=== PATIENT | male | born 1945 | race Caucasian/White ===

== ENCOUNTER 2019-08-11 10:31 | Inpatient (IN) ==
--- NOTE | 2019-08-07 12:26 | Anesthesiology Consultation ---
Date of Service August 07, 2019 Assessment & Plan (1) Encounter for pre-operative examination: Patient seen in [facility] 04/2019, case postponed due to COVID19. Patient's pre-op labs showed elevated INR at 1.4 (patient not on any medications that may cause this), and note was sent to PCP for clearance. Clearance note comments on abnormality, labs were re-ordered. Updated labs were never received by us, but patient was cleared by PCP, so labs were presumed to be OK. Spoke to patient's PCP office to clarify if any labs done recently. They stated labs were repeated in April, and gave verbal confirmation that INR was 1.3 on repeat. Patient will have labs repeated prior to surgery. Case discussed with Dr. Soria. If updated labs show persistent, mild elevation in INR, OK from anesthesia standpoint, but surgeon will need to be made aware, and may preclude patient from having regional nerve block. COVID Status: As of 08/02 nurse assessment, patient denies travel to endemic area, known exposure/sick contacts, symptoms, or testing for coronavirus. Chart Review Chart Review: Acceptable Risk for Surgery (pending updated labs) and Patient NOT seen in Pre Admission Testing History Surgery Operation Date: 08/11/19 12:30 Proposed Procedures p Right Reverse Total Shoulder Arthroplasty - Kelechi Wallis, DO Height/Weight Height: 5 ft 11 in Weight: 153.314 kg Allergies Allergy/AdvReac Type Severity Reaction Status Date / Time No Known Allergies Allergy Verified 08/03/19 11:30 Medications Home Medications Medication Instructions Recorded Confirmed Last Taken allopurinol 100 mg PO QAM 04/18/19 08/03/19 Unknown lisinopril-hydrochlorothiazide 1 tab PO QAM 04/18/19 08/03/19 Unknown tamsulosin 0.4 mg PO HS 04/18/19 08/03/19 Unknown Past Medical History Medical History Enlarged prostate History of gout History of kidney stones Hypertension Morbid obesity Past Family History Family History Other No family history of adverse response to anesthesia Past Surgical History Surgical History History of appendectomy History of cystoscopy History of plastic surgery Severe laceration to lower lip from power saw History of surgery on extremity L LEG/ ROYCE PLACED Social History Smoking Status: Former smoker tobacco type: cigarettes Do You Dip or Chew Tobacco: No Smoking End Date: 1991 Hx Alcohol Use: No Hx Substance Use: No substance use type: does not use
--- NOTE | 2019-08-10 07:55 | History & Physical Report ---
Date of Service August 10, 2019 Assessment & Plan (1) Osteoarthritis of right shoulder: We will proceed with a right reverse shoulder arthroplasty. Postoperatively he will be placed in a sling and kept overnight in the hospital for postoperative medical management. He plans to go to outpatient physical therapy and lock even upon discharge. Robbie is a high risk for shoulder replacement surgery. He has a major comorbidity of morbid obesity with a BMI of 47. Present on Admission?: Yes History of Present Illness Chief Complaint: Primary osteoarthritis of the right shoulder Primary Care Provider: Magen Hellerlinda Avalos is a pleasant 74-year-old male who is been dealing with chronic increasing right shoulder pain. X-rays and clinical examination have been diagnostic for advanced osteoarthritis of the right shoulder. After failing years of conservative treatment, he has elected to proceed with a right reverse total shoulder arthroplasty. Allergies Allergy/AdvReac Type Severity Reaction Status Date / Time No Known Allergies Allergy Verified 08/03/19 11:30 Home Medications Home Medications Medication Instructions Recorded Confirmed Type allopurinol 100 mg PO QAM 04/18/19 08/03/19 History lisinopril-hydrochlorothiazide 1 tab PO QAM 04/18/19 08/03/19 History tamsulosin 0.4 mg PO HS 04/18/19 08/03/19 History Past Med/Surg History Medical History Enlarged prostate History of gout History of kidney stones Hypertension Morbid obesity Surgical History History of appendectomy History of cystoscopy History of plastic surgery Severe laceration to lower lip from power saw History of surgery on extremity L LEG/ ROYCE PLACED Family History Other No family history of adverse response to anesthesia Social History Preferred Language: Armenian Communication Ability: Effective Major Assembler Required: No Beliefs That Will Affect Care: None Current Living Situation: Spouse Feels Safe at Home: Yes Smoking Status: Former smoker Tobacco Type: cigarettes ; Second Hand Exposure: No ; Hx Alcohol Use: No Hx Substance Use: No Review of Systems Review of Systems: All systems reviewed & are unremarkable except as noted in HPI & below Physical Exam Constitutional: WD/WN, vitals as above Eyes: PERRL, conjunctivae normal, anicteric sclerae ENMT: external ear and nose normal, oropharynx normal Neck: trachea midline, no thyromegaly Respiratory: normal respiratory effort Cardiovascular: RRR, no murmur, no edema Gastrointestinal (Abdomen): normal bowel sounds, soft, nontender, no hepatosplenomegaly Musculoskeletal: Physical examination of the right shoulder reveals decreased range of motion and crepitis throughout. There is good strength with full can testing and external rotation. There is tenderness palpation along the anterior glenohumeral joint line. The right upper extremity is neurovascularly intact. Psychiatric: A+Ox3, euthymic affect Results & Data Results & Data ([facility]) Diagnostic Findings Radiographs of the right shoulder show osteoarthritis of the glenohumeral joint. There is joint space narrowing, osteophyte formation, and [id number] articulation. PG Care Time/CCT Total # of Minutes Spent Total Time Spent with Patient: Total time spent is greater than 50% in coordination of care (as documented) at patient's floor/unit and/or counseling patient: Coding Level of Care Code 06236 Initial Inpt Care Lvl 3 Diagnoses Osteoarthritis of right shoulder M19.011
[~2019-08-11 10:31] MED LIST: ACETAMINOPHEN 500 MG TAB PO SCH; BUPIVACAINE 0.5 % 5 MG/1 ML PF 10ML VIAL ONE; CEFAZOLIN 3000MG 72.5 ML IV SCH; FAMOTIDINE 20 MG TAB PO SCH; GABAPENTIN 300 MG CAP PO SCH; LR 15ML/HR IV SCH; LR 60ML/HR IV SCH; ROPIVACAINE 0.5% HCL/PF 150 MG, BUPIVACAINE 0.5% MPF 30 ML, EPINEPHrine 30MG/30ML (OR U... INSTIL SCH; TRANEXAMIC ACID 1,000 MG **IV Intra-op IV SCH; TRANEXAMIC ACID 1,000 MG **IV Pre-op IV SCH; dexAMETHasone 4 MG TAB PO SCH
[2019-08-11] MEDS ORDERED: GLYCOPYRROLATE 0.2 MG/ML VIAL ONE (12:49)
[2019-08-11] MEDS ORDERED: PROPOFOL IV EMULSION 10 MG/ML 20 ML VIAL IV ONE (12:49)
[2019-08-11] MEDS ORDERED: MIDAZOLAM HCL 1 MG/ML 2ML VIAL ONE (12:49)
[2019-08-11] MEDS ORDERED: LIDOCAINE HCL 2% 2 ML VIAL/AMP(20MG/ML) INFIL ONE (12:49)
[2019-08-11] MEDS ORDERED: ROCURONIUM BROMIDE 10 MG/ML 5 ML VIAL ONE (12:49)
[2019-08-11] MEDS ORDERED: fentaNYL citrate 100 MCG/2 ML VIAL ONE ×3 (12:49→14:42)
[2019-08-11] MEDS ORDERED: LARYING-O-JET KIT (LTA) ONE (12:49)
[2019-08-11] MEDS ORDERED: NEOSTIGMINE METHYLSULFATE 5 MG/5 ML SYR ONE (12:49)
--- NOTE | 2019-08-11 13:06 | History & Physical Bridge Note ---
Date of Service August 11, 2019 History & Physical Bridge Note I have examined the patient, reviewed the History & Physical and in the interval since the performance of the History & Physical I have noted the following changes of clinical significance: no changes noted
[2019-08-11] MEDS ORDERED: ATROPINE SULFATE 0.1 MG/ML 10ML SYR IV PRN (13:18)
[2019-08-11] MEDS ORDERED: ONDANSETRON INJ 2 MG/ML 2 ML VIAL IV PRN ×2 (13:18→17:22)
[2019-08-11] MEDS ORDERED: ORTHO JOINT ANESTHETIC ONE (13:18)
[2019-08-11] MEDS ORDERED: ePHEDrine sulfate 50 MG/ML AMP IV PRN (13:18)
[2019-08-11] MEDS ORDERED: fentaNYL citrate 100 MCG/2 ML VIAL IV PRN ×2 (13:18→16:04)
--- NOTE | 2019-08-11 15:18 | Operative Report ---
PG Post Operative Report Pre & Post Diagnosis Operation Date: 08/11/19 12:30 Pre-Op Diagnosis: Degenerative Joint Disease Right Shoulder with disease of the long head of the biceps tendon Post-Op Diagnosis: Degenerative Joint Disease Right Shoulder with disease of the long head of the biceps tendon I identified the patient and participated in the time-out.: Yes Procedure Operation Date: 08/11/19 12:30 Actual Procedures p Right Reverse Total Shoulder Arthroplasty with open biceps tenodesis as a separate procedure (modifier 59) (Right) - Kelechi Wallis DO Surgeon Kelechi Wallis DO [employer] Kelechi Marcano PAC Estimated Blood Loss 250 Findings Consistent with Post-Op Diagnosis Specimens Right humeral head Complications none Disposition Disposition: Recovery Room Indications Robbie is a pleasant 74-year-old male who presented my office with severe right shoulder pain. X-rays and clinical examination were diagnostic for advanced osteoarthritis of the right shoulder. After failing extensive conservative treatment, he elected to proceed with a reverse right shoulder arthroplasty. Description of Procedure A CPT code modifier 59: The long head of the biceps tendon was enlarged and inflamed consistent with tendinopathy. A tenodesis was opted. This was a separate and distinct portion of the procedure. For these reasons, a CPT code modifier 59 will be added to this case. Implants used: I used a [employer] Comprehensive reverse total shoulder arthroplasty system with a size 13 press fit micro-humeral stem, a standard humeral tray and a standard humeral bearing, a 28 mm standard baseplate with a 6.5 mm central screw and superior and inferior locking screws, and a size 40 mm eccentric glenosphere. Robbie arrived at [facility] for the above procedure. He was seen in the preoperative holding area and the operative extremity was identified and signed. He was given a preoperative antibiotic, TXA, and an interscalene nerve block. He was taken back to the operating room, laid on table in supine position, and put under general anesthesia. He was then put into the beachchair position. The shoulder was then prepped and draped in sterile fashion. A timeout was done and the patient and the operative extremity was properly identified. A deltopectoral approach was used. Dissection was taken down through the fascia and the deltoid was retracted laterally and the conjoined tendon was retracted medially. The anterior shoulder was exposed. The biceps groove was opened up and the biceps tendon was examined extensively. The biceps tendon demonstrated enlargement and inflammatory changes consistent with longstanding inflammation in the context of osteoarthritis and cuff arthropathy. The long head of the biceps tendon was then tenodesed to the upper border of the pectoralis major. This was a separate and distinct portion of the procedure. The subscapularis was then directly released off the lesser tuberosity with a peel technique. The inferior capsule was released and the humeral head was dislocated. A canal finding reamer was sent down the center of the humeral canal. Sequential reaming up to a size 13 reamer was done. Off that reamer, a proximal humeral resection guide was placed. The proximal humerus was resected at 135 of inclination and 25 of retroversion. Osteophytes were then removed and the glenoid was exposed. Time was spent doing a complete capsular and labral release. The glenoid guide was then placed in the inferior aspect of the glenoid. A 3.2 mm Steinmann pin was then placed into the glenoid vault at 10 of inclination. The glenoid baseplate was then reamed. The final size 28 mm standard baseplate was then impacted in the place. A 6.5 mm central screw was then placed followed by superior and inferior locking screws. A 40 mm eccentric glenosphere was then impacted into place. Surrounding soft tissues were then injected with 100 cc an orthopedic pain control cocktail. The proximal humerus was then exposed. Sequential broaching of the humerus up to a size 13 broach was done. Off that broach a standard humeral tray was trialed. The shoulder was then reduced, brou ght through a full range of motion, and felt to be stable. The shoulder was then dislocated and the broach was removed. The final size 13 micro press-fit humeral stem was then impacted into place. A standard humeral bearing was then snapped onto a standard humeral tray. The humeral tray was then impacted onto the humeral stem. The shoulder was once again reduced, brought through a full range of motion, and felt to be stable. The subscapularis was too tight and unable to be repaired back to the lesser tuberosity. A dilute betadyne lavage was then done for 3 minutes. The joint was then irrigated with normal saline solution. Hemostasis was obtained. The interval was closed with 2-0 Vicryl suture. The skin was then closed with 2-0 Vicryl and nata. A soft dressing was placed and the arm was rested in a regular arm sling. He was then extubated and transferred to a hospital bed. He taken to the postanesthesia care unit in stable condition. He tolerated the procedure well. Kelechi Marcano PA-C, was present for the entire procedure. He was critical for patient positioning, prepping, draping, retraction exposure, wound closure and application of sterile dressing. I attest to the content of the Intraoperative Record and any orders documented therein. Any exceptions are noted below.
[2019-08-11] MEDS ORDERED: HYDROmorphone INJ 2 MG/ML SYR/VIAL IV PRN (16:04)
[2019-08-11] MEDS ORDERED: HYDROmorphone INJ 1 MG/ML SYRINGE ONE (16:14)
--- NOTE | 2019-08-11 16:33 | XRay Report ---
XR shoulder RT min 2V routine CLINICAL HISTORY: Post shoulder surgery COMPARISON: CT scan dated April 24, 2019 DISCUSSION: There are postsurgical changes of a reverse total right shoulder arthroplasty. There is n o dislocation. Overlying skin nata are evident. IMPRESSION: Postsurgical changes of a reverse total right shoulder arthroplasty. ACT 112: Negative or not required by law. Electronically signed by: Miki Baldwin M.D. 08/11/2019 4:32 PM
--- NOTE | 2019-08-11 17:07 | Anesthesiology Progress Note ---
Date of Service August 11, 2019 Anesthesia Post Procedure Vital Signs Vital Signs: Temp Pulse Pulse Pulse Resp BP Pulse Ox 08/11/19 16:55 36.3 C L 69 18 128/63 94 08/11/19 16:45 72 18 128/74 94 08/11/19 16:35 72 19 137/72 94 08/11/19 16:25 78 21 137/72 96 08/11/19 16:15 75 18 131/64 95 08/11/19 16:05 79 18 135/71 97 08/11/19 15:57 36.8 C 82 18 142/74 H 95 08/11/19 15:35 83 18 98 08/11/19 11:49 79 18 139/66 98 08/11/19 10:54 36.7 C 104 H 16 189/86 H 99 Pain Intensity Right Shoulder: Pain Intensity: 3 Transfer of Care Handoff Completed per policy Notes Mental Status: alert / awake / arousable and participated in evaluation Patient Amnestic to Procedure: Yes Nausea / Vomiting: adequately controlled Pain: adequately controlled Airway Patency, RR, SpO2: stable & adequate BP & HR: stable & adequate Hydration State: stable & adequate Anesthetic Complications: no major complications apparent
[2019-08-11] MEDS ORDERED: NALOXONE HCL 0.4 MG/1 ML VIAL/CARP IV PRN (17:22)
[2019-08-11] MEDS ORDERED: HYDROmorphone INJ 0.5 MG/0.5 ML SYR IV PRN (17:22)
[2019-08-11] MEDS ORDERED: MAGNESIUM HYDROXIDE SUSP 30 ML UDC PO PRN (17:22)
[2019-08-11] MEDS ORDERED: METOCLOPRAMIDE HCL INJ 5 MG/ML 2 ML VIAL IV PRN (17:22)
[2019-08-11] MEDS ORDERED: bisacodyL 10 MG SUPP PR PRN (17:22)
[2019-08-11] MEDS ORDERED: OXYCODONE HCL IR 5 MG TAB (IMMEDIATE RELEASE) PO PRN (17:22)
[2019-08-11] MEDS: MISSING PHYSICIAN SIGNATURE ON ORDER SCH ×3 (17:33→17:35)
[2019-08-11] MEDS: SODIUM CHLORIDE 0.9% 1000ML 1,000 ML IV SCH (18:10)
[2019-08-11] MEDS: KETOROLAC TROMETHAMINE 15 MG/ML VIAL IV SCH (18:55)
[2019-08-11] MEDS ORDERED: KETOROLAC 30 MG/ML VIAL IV SCH (19:00)
[2019-08-11] MEDS: DOCUSATE SODIUM 100 MG CAP PO SCH (20:32)
[2019-08-11] MEDS ORDERED: SENNA 8.6 MG TAB PO SCH (21:00)
[2019-08-11] MEDS ORDERED: TAMSULOSIN HCL 0.4 MG CAP PO SCH (21:00)
[2019-08-11] MEDS: CEFAZOLIN 2000MG 2,000 MG/15 ML SYR IV SCH (21:52)
[2019-08-11] MEDS: ACETAMINOPHEN 500 MG TAB PO SCH (21:52)
[2019-08-12] MEDS: KETOROLAC TROMETHAMINE 15 MG/ML VIAL IV SCH ×2 (00:53→06:20)
[2019-08-12] MEDS: SODIUM CHLORIDE 0.9% 1000ML 1,000 ML IV SCH (04:21)
[2019-08-12] MEDS: CEFAZOLIN 2000MG 2,000 MG/15 ML SYR IV SCH (05:59)
[2019-08-12] MEDS: ACETAMINOPHEN 500 MG TAB PO SCH (05:59)
--- NOTE | 2019-08-12 06:52 | Orthopedic Progress Note ---
Date of Service August 12, 2019 Assessment & Plan (1) History of reverse total replacement of right shoulder joint: Overall he is doing very well. He is not having much pain in the right shoulder. He will be seen by physical therapy this morning for ambulation and range of motion exercises. He can be discharged home later today. He will follow-up with orthopedics in 2 weeks. Present on Admission?: Yes Zach Avalos was seen and examined at bedside this morning. Overall he is doing very well. Is not having much pain in the right shoulder. He was able to get some sleep last night. He has no complaints. Physical Exam Musculoskeletal: On physical examination of the right shoulder, the dressing is clean and dry. He is wearing his sling as instructed. His radial, median, and ulnar nerves are checked and intact at his wrist. Results & Data ([facility]) Vital Signs (Past 12 Hours) Vital Signs Temp Pulse Resp BP Pulse Ox Pulse Ox 08/12/19 02:47 36.4 C L 77 21 165/77 H 94 08/11/19 23:36 36.7 C 76 16 123/79 91 08/11/19 20:07 36.6 C 76 18 161/82 H 96 08/11/19 19:24 36.6 C 81 20 123/70 96 08/11/19 19:00 95 Diagnostic Findings Postoperative x-rays of the right shoulder show the prosthesis to be in anatomic alignment without any evidence of fracture, dislocation, or loosening. PG Care Time/CCT Total # of Minutes Spent Total Time Spent with Patient: Total time spent is greater than 50% in coordination of care (as documented) at patient's floor/unit and/or counseling patient: Coding Level of Care Code None Diagnoses History of reverse total replacement of right shoulder joint Z98.890
--- NOTE | 2019-08-12 06:53 | Discharge Summary ---
Date of Service August 12, 2019 Admission HPI Per Admitting Provider Robbie is a pleasant 74-year-old male who is been dealing with chronic increasing right shoulder pain. X-rays and clinical examination have been diagnostic for advanced osteoarthritis of the right shoulder. After failing years of conservative treatment, he has elected to proceed with a right reverse total shoulder arthroplasty. Principal Diagnosis Right reverse shoulder arthroplasty Discharge Data Allergies Allergy/AdvReac Type Severity Reaction Status Date / Time No Known Allergies Allergy Verified 08/11/19 10:48 Consultations 08/11/19 17:22 Consult Case Management - Discharge Planning Routine Procedures Performed Operation Date: 08/11/19 12:30 Actual Procedures p Right Reverse Total Shoulder Arthroplasty(Right) - Kelechi Wallis DO Ordered Studies 08/11/19 05:00 US - OR guided needle placemen Routine Hospital Course (1) History of reverse total replacement of right shoulder joint: On August 11, [address] [facility] and underwent a right reverse shoulder arthroplasty without complication. He had a general anesthetic and a right interscalene nerve block. Postoperatively he was placed in a sling and transferred to the general orthopedic floors. His hospital course was uneventful. On postop day #1 his H&H was stable and his pain was well controlled. He was able to participate well with physical therapy doing ambulation and range of motion exercises. He was then discharged to home. He will follow-up with orthopedics in 2 weeks. Total Time Total Time Spent Total Time Spent (In Minutes): 20 Discharge Plan Discharge Items Patient Disposition: Home - Home Health Services Reason For Visit: Degenerative Joint Disease Right Shoulder Discharge Diagnosis: Right reverse shoulder arthroplasty Activity: As commented below Non-emergency contact: Surgeon Call non-emergency contact if: your wound has increased redness and your wound has increased drainage Follow-up/Referrals: Magen Montero PA-C [Primary Care Provider] - Diet: Regular Addtl Attending Provider Instructions: Activity and Therapy Recommendations: * If you are using [facility] then therapy will be provided at your home until they feel you have accomplished all of your goals. * If you are using [facility] then Physical Therapy will be provided until they feel you are ready to start Outpatient Physical Therapy. * If you are not using home therapy then Outpatient Physical Therapy should start about 3-5 days from your day of surgery. Therapy will last about 8-12 weeks * Wear your sling for 3 weeks, unless otherwise instructed. You may remove your sling to shower and to dress, but otherwise, you should be in your sling at all times, including while sleeping * The shoulder replacement is very stable and you can use your hand while in the sling * You were shown a series of exercises in the hospital. Do these exercises daily including the exercises you were shown in physical therapy. Medications: * Narcotic You will likely be sent home from the hospital with a prescription for the narcotic pain medication that worked best throughout your stay. * Other medications may be prescribed for specific circumstances. If you have any questions, please call the office at . * Resume previous home medications unless otherwise instructed Dressing Care: Leave the silver dressing intact for 7 days from the day of surgery. After 7 days you may remove the dressing. If the incision is not draining then you may leave the nata open to air. If there is a little bit of drainage or if the nata are getting stuck on your clothing then cover the incision with a dry dressing. The nata will be removed at your 2 week follow-up appointment. Showering: You may shower with the silver dressing in place. Let the shower spray hit the other shoulder. You can pat the plastic dry. If the dressing becomes wet underneath then simply remove the dressing. Keep the incision dry until you are 5 days out from the day of surgery. At that time you can shower with the nata exposed. Let the soapy shower water run over the nata and pat them dry. Do not scrub or soak the incision. Things To Watch For: * Drainage from the incision site that occurs more than one week after your surgery. * Increased redness at the incision site. * Fever above 102 degrees Fahrenheit. * Unusual chest pain or shortness of breath. * Call [facility] at with any of the above problems Follow-Up Visit: Follow-up with Dr. Wallis's PA (Kelechi Marcano) 2-3 weeks after your day of surgery. He will remove your nata and answer any questions. If you have any additional questions or concerns, Dr Wallis is usually in the office at the same time and will be available An appointment was probably scheduled when you signed-up for surgery in the office. If you have any questions call More detailed instructions as well as Frequently Asked Questions were provided in a folder by our office when you signed-up for surgery. Please review these instructions when you get home. If you have any further questions or concerns, please feel free to call the office at [phone] Pending Studies at Discharge: No Stand-Alone Forms: My [facility] Medications and DC Order Prescriptions: New oxycodone 5 mg Tablet 5 mg PO Q4H PRN (Reason: pain) Qty: 30 RF: 0 Continued lisinopril-hydrochlorothiazide 20-12.5 mg Tablet 1 tab PO QAM RF: 0 allopurinol 100 mg Tablet 100 mg PO QAM RF: 0 tamsulosin 0.4 mg Capsule 0.4 mg PO HS RF: 0 Discharge Orders: Discharge Order (Routine); Ordered 08/12/19 Ordered By: Kelehci Wallis Admission Data Admit Date/Time: 08/11/19 15:48 Attending Provider: Kelechi Wallis Admit Provider: Kelechi Wallis Primary Care Provider: Magen Montero Coding Level of Care Code D/C Day Management <30 mins Diagnoses History of reverse total replacement of right shoulder joint Z98.890
[2019-08-12 06:58] LABS: Hematocrit (blood only) 37.2 % (42-52); Hemoglobin 12.7 g/dL (14.0-18.0); Immature Granulocytes # (auto) 0.02 K/uL (0.00-0.02); Immature Granulocytes % (auto) 0.1 %; Lymphocytes # (auto) 0.95 K/uL (1.2-3.4); Lymphocytes % (auto) 6.6 %; Mean Corpuscular Hemoglobin 30.5 pg (25-34); Mean Corpuscular Hgb Conc 34.1 g/dL (32-36); Mean Corpuscular Volume 89.4 fL (80-100); Monocytes # (auto) 0.54 K/uL (0.11-0.59); Monocytes % (auto) 3.7 %; Neutrophils # (auto) 12.95 K/uL (1.4-6.5); Neutrophils % (auto) 89.6 %; Platelet Count 229 K/uL (130-400); RDW Coefficient of Variation 12.9 % (11.5-14.5); RDW Standard Deviation 41.5 fL (36.4-46.3); Red Blood Count 4.16 M/uL (4.7-6.1); White Blood Count 14.46 K/uL (4.8-10.8)
[2019-08-12 07:37] LABS: BUN Creatinine Ratio 22.7 (10-20); Calcium 8.6 mg/dl (8.5-10.1); Creatinine Clr Calc Pharmacy 67.8 ml/min; Est GFR (African American) 53.1; Est GFR (Non-African American) 45.9; Potassium 4.2 mmol/L (3.5-5.1)
[2019-08-12] MEDS ORDERED: dexAMETHasone 4 MG TAB PO SCH (08:00)
[2019-08-12] MEDS: DOCUSATE SODIUM 100 MG CAP PO SCH (08:40)
[2019-08-12] MEDS ORDERED: allopurinoL 100 MG TAB PO SCH (09:00)
[2019-08-12] MEDS ORDERED: MULTIVITAMIN TAB PO SCH (09:00)
[2019-08-12] MEDS ORDERED: LISINOPRIL/HCTZ 20/12.5MG 1 TAB TAB PO SCH (09:00)
== END 2019-08-12 10:55 | disposition home or self-care (01) | DRG 483 ==
LOC: ASU 10:31 → 3E 15:48

== ENCOUNTER 2021-12-19 05:46 | Inpatient (IN) ==
--- NOTE | 2021-12-15 14:06 | PAT Medication Instructions ---
Medication Instructions Date of Service December 15, 2021 Home Medications aspirin 81 mg tablet,delayed release 81 mg PO QAM insulin glargine 100 unit/mL (3 mL) subcutaneous pen (Basaglar KwikPen U-100 Insulin) 20 unit subcut BID rosuvastatin 10 mg tablet 10 mg PO HS Plavix 1 tab PO QAM valsartan 320 mg-hydrochlorothiazide 12.5 mg tablet 1 tab PO QAM ASK your prescriber and surgeon aspirin 81 mg tablet,delayed release 81 mg PO QAM Plavix 1 tab PO QAM DO NOT take the morning of surgery valsartan 320 mg-hydrochlorothiazide 12.5 mg tablet 1 tab PO QAM Take evening before surgery rosuvastatin 10 mg tablet 10 mg PO HS Insulin Dependent Diabetic Patients * Test your blood sugar the morning of surgery * If Blood Sugar is GREATER THAN 150, take HALF of your regular dose of: insulin glargine 100 unit/mL (3 mL) subcutaneous pen (Basaglar KwikPen U-100 Insulin)- 10 unit subcut BID. * If Blood Sugar is LESS THAN 150, DO NOT TAKE ANY: insulin glargine 100 unit/mL (3 mL) subcutaneous pen (Basaglar KwikPen U-100 Insulin). Other Notes NOTHING TO EAT OR DRINK AFTER MIDNIGHT. If you have any questions please call us at [phone] or [phone] or [phone] or [phone]
--- NOTE | 2021-12-16 08:29 | Anesthesiology Consultation ---
Date of Service December 16, 2021 Assessment & Plan (1) Encounter for pre-operative examination: - check BSG am DOS. Chart Review Chart Review: Acceptable Risk for Surgery and Patient seen in Pre Admission Testing Teaching & Discussion Pre-Anesthesia Teaching/Discussion Notes: Instructed NPO after midnight before surgery, except medications with 15 cc of water. Medication instructions provided according to the PAT guidelines. History Surgery Operation Date: 12/19/21 09:50 Proposed Procedures p Right Transcarotid Artery Revascularization - Tin Rocha MD Height/Weight Height: 5 ft 11 in Weight: 157.2 kg Allergies Allergy/AdvReac Type Severity Reaction Status Date / Time No Known Allergies Allergy Verified 12/15/21 12:36 Medications Home Medications Medication Instructions Recorded Confirmed Last Taken aspirin 81 mg tablet,delayed 81 mg PO QAM 11/13/21 12/15/21 Unknown release insulin glargine 100 unit/mL (3 20 unit subcut BID 11/13/21 12/15/21 Unknown mL) subcutaneous pen (Basaglar KwikPen U-100 Insulin) rosuvastatin 10 mg tablet 10 mg PO HS 11/13/21 12/15/21 Unknown Plavix 1 tab PO QAM 12/15/21 12/15/21 Unknown valsartan 320 1 tab PO QAM 12/15/21 12/15/21 Unknown mg-hydrochlorothiazide 12.5 mg tablet Past Medical History Medical History (Updated 12/16/21 @ 08:49 by Lucila Frey PA-C) Carotid stenosis critical (>90%) stenosis of the left ICA and >75% stenosis of right ICA History of gout History of kidney stones History of neurological signs and symptoms confusion, blurred vision-work up demonstrating critical carotid stenosis, advised by vascular to call 911 if recurrence of neurological symptoms Hyperlipemia Hypertension controlled, stable per pt Mild concentric left ventricular hypertrophy (LVH) Morbid obesity Type 2 diabetes mellitus IDDM Patient denies h/o stroke, seizures, heart attack, heart failure, blood clots or blood transfusions. Exercise / Class Metabolic Activity III < 4 Walking/Shop/Light housework (denies CP or SOB with usual activities) Past Family History Family History Other No family history of adverse response to anesthesia Past Surgical History Surgical History History of appendectomy History of cystoscopy History of plastic surgery Severe laceration to lower lip from power saw History of reverse total replacement of right shoulder joint (~08/2019) 08/11/19: Grade 1 view Glidescope#4 ETT 8 + PNB. History of surgery on extremity L LEG/ ROYCE PLACED Past Anesthesia History No Hx of Anesthesia Complications and No Family Hx of Anesthesia Complications History of PONV No Hx of PONV and No Hx of Motion Sickness Social History Smoking Status: Former smoker tobacco type: cigarettes Do You Dip or Chew Tobacco: No Smoking End Date: 35 years ago Hx Alcohol Use: No Hx Substance Use: No substance use type: does not use Review of Systems Patient denies chest pain, shortness of breath, dyspnea on exertion, snoring, witnessed apneas, reflux, fever, chills, cough, wheezing, current dizziness, lightheadedness, blurred vision or other vision changes, numbness weakness, headache, speech or gait change, or palpitations. Physical Exam Vital Signs Vitals BP 149/76, pt states home systolic reading 111 this morning P 66 TEMP 97.6 SP02 99% on RA RESP 17 Physical Resting comfortably in chair, alert and responding appropriately Short, thick neck Full cervical extension range of motion without pain TMD< 3 finger breadths Mallampati Score 3 Dentition: intact, front removable partial plate; denies chipped or loose teeth, implants or bridges Lungs: normal respiratory effort. Clear throughout to auscultation, no adventitious breath sounds Cardiac: regular rate and rhythm, no murmurs noted Lab Results Anesthesia Preop Results Results Anesthesia Widget: WBC 8.98 K/ul (4.8-10.8) 12/16/21 Hgb 13.3 g/dl (14.0-18.0) L 12/16/21 Hct 39.5 % (40.1-51.0) L 12/16/21 Plt 241 K/uL (130-400) 12/16/21 Na 138 mmol/L (136-145) 12/16/21 K 4.2 mmol/L (3.5-5.1) 12/16/21 Cl 102 mmol/L (98-107) 12/16/21 CO2 30 mmol/L (21-32) 12/16/21 BUN 29 mg/dl (6-23) H 12/16/21 Creat 1.48 mg/dl (0.6-1.4) H 12/16/21 Glucose Level 131 mg/dl (70-99(Fasting)) H 12/16/21 PT 14.7 Seconds (9.0-12.0) H 12/16/21 PTT 29.7 Seconds (21.0-31.0) 12/16/21 INR 1.4 (0.9-1.1) H 12/16/21 HA1c 6.0 % (4.5-5.6) H 12/16/21 Blood Type A Positive 12/16/21 Antibody Screen NEGATIVE 12/16/21 Testing Electrocardiogram Date: 12/16/21 NSR, rate 65 bpm Chest X-Ray Date: 12/16/21 Cardiomediastinal and hilar silhouettes are within normal limits. No pneumothorax, pleural effusion, airspace consolidation or overt pulmonary edema. Degenerative changes of the spine and left shoulder. Right shoulder arthroplasty. IMPRESSION: No acute process. Echocardiogram Date: 12/02/21 EF 60-65% Normal LV systolic function Grade I diastolic dysfunction Mild cLVH No significant valvular pathology Other Testing Head CT 12/12/21 There is no hemorrhage, mass effect, or evidence of acute territorial ischemia by CT criteria. Neck CTA 12/09/21 1. Critical to severe stenosis involving the distal left common carotid artery and proximal 1 cm of the left internal carotid artery of greater than 90% secondary to the calcified plaque. 2. High-grade stenosis of greater than 75% stenosis at the takeoff of the right internal carotid artery. 3. Mild stenosis within the proximal bilateral subclavian arteries and proximal bilateral vertebral arteries. 4. There is complete opacification of the left mastoid air cells and left middle ear cavity. Hypoplastic versus partial erosion of the left ear ossicles. Therefore, this raises the possibility of a left-sided cholesteatoma. COVID-19 Risk Screen Screening Information COVID-19 Screen Date: 12/16/21 Exposure 21 Days Family/Household +COVID Last 21 Days: No Exposure 10 Days Any COVID Exposure Last 10 Days: No Symptoms Last 10 Days Experienced COVID Sx Last 10 Days: No + COVID 0-90 Days COVID + in Last 0-90 Days: No
--- NOTE | 2021-12-18 14:18 | History & Physical Report ---
Date of Service December 18, 2021 History of Present Illness Primary Care Provider: Magen Montero Name: MANSOOR SMITH Patient Number: [id number] : 1945 Date of Service: 12/11/2021 Chief Complaint: _New patient consultation for carotid stenosis HPI: _Mr. Smith is an elderly male who presents to Dr. Rocha's vascular surgery clinic today as a new patient in consultation for a bilateral ICA stenosis. Patient is a somewhat poor historian himself, but his is also present who provides some history. The patient does not remember all of the events, but his is able to describe these in detail. Patient's states that she began to notice intermittent episodes of confusion/disorientation which began occurring in August 2021. She states that he would be perfectly fine 1 moment, but then would have trouble remembering how to open the garage door, or how to turn on the stove. She states that a few moments later he would be fine. She states that this happened handful of times over the summer. Additionally the patient admits to a foster clouded vision over the bottom half of his right eye which would last maybe 10 seconds each time, which has occurred 3-4 times since August. 2 weeks ago, the patient was mowing the grass at home, and developed sudden complete numbness and weakness of his left arm, which lasted about half hour. Patient denies any associated headache, or dizziness or near syncope. He denies any difficulty speaking or swallowing, facial droop. Patient's states that she brought this to the attention of their PCP, who ordered the patient to have a carotid ultrasound. After the results indicated significant stenosis, they were referred to cardiology, who had the patient undergo an echocardiogram, as well as monitor tech. Patient eventually had a neck CT angiogram, which demonstrated severe bilateral ICA stenosis, and he was then referred to Dr. Rocha for surgical evaluation. Patient has recently been started on rosuvastatin. Patient currently denies headache, fever, chills, chest pain, shortness of breath, abdominal pain, nausea, vomiting, rest pain, claudication, nonhealing wounds or ulcers, other concerns. Review of systems: A total of 14 systems are reviewed and are negative aside from what is related in his HPI. Imaging: Patient did have a carotid ultrasound performed at [facility], which indicated over 70% stenosis of his bilateral ICAs. Neither the report nor the images for this were available for review. He then underwent a CTA of the neck at [facility] on 12/09/2021 which confirms over 90% stenosis of the left ICA, over 75% stenosis of the right ICA. Current Home Meds: (Last Updated 12/11 12:47) aspirin (aspirin 81 mg oral delayed release tablet) 81 mg PO Daily clopidogrel (Plavix 75 mg oral tablet) 75 mg PO Daily hydroCHLOROthiazide-valsartan (hydroCHLOROthiazide-valsartan 12.5 mg-320 mg oral tablet) 1 tab PO Daily insulin glargine (Basaglar KwikPen 100 units/mL subcutaneous solution) 20 unit subQ bid rosuvastatin (rosuvastatin 10 mg oral tablet) 10 mg PO Daily Allergies and Sensitivities: NKA Past Medical History: Problems: Carotid stenosis, symptomatic w/o infarct Type 2 diabetes mellitus Hypertension Enlarged prostate Gout Kidney stones Surgical history: Positive for appendectomy, cystoscopy, plastic surgery, reverse total right shoulder joint Family history: Positive for coronary artery disease, hypertension, diabetes, cancer, stroke Social history: Patient is a former smoker, having quit over 20 years ago. He denies alcohol or illicit drug use. He is and lives at home with his . OBJECTIVE Vitals: Last Updated 12/11/21 12:02 Date Temp BP Location Pulse RR SpO2 Pain 12/11/21 130/78 Right Arm 0 12/11/21 130/58 Left Arm 79 97 Vital Signs are the last 3 documented. No Orthostatic Data Available Height and Weight: Last Updated 12/11/21 12:01 Date BMI Wt(kg) Wt(lb) Method Ht(cm) (ft-in) Method 12/11/21 157.2 346 Standing Scale Heights and Weights are the last 3 documented. Physical Exam Constitutional: In general patient is an obese but healthy-appearing well- nourished well-developed elderly male no distress. He is alert and oriented without any focal deficits. His head is normocephalic and atraumatic. His neck is supple and nontender with a midline trachea. His left carotid does demonstrate a faint high-pitched bruit. His posterior left neck does have an old scar from an ax injury. His heart is regular, his lungs are clear throughout. His abdomen is soft and nontender with normoactive bowel sounds in all 4 quadrants. His brachial and radial pulses are +3. His femoral pulses are +3. His lower extremity distal pulses are +2. He has brisk capillary refill and no sign of distal ischemia. He does have some skin changes consistent with chronic venous insufficiency, as well as +2 pitting edema bilaterally. ASSESSMENT: _ PLAN: _ 1 ) _carotid stenosis Patient currently has symptoms consistent with right hemispheric TIA versus CVA, with his most recent symptoms being left arm weakness and numbness which occurred about 2 weeks ago. He appears to have significant stenosis in his right ICA, for which we recommend that he undergo carotid endarterectomy versus TCAR. The procedures, risks benefits and alternatives were discussed at length with the patient to Dr. Rocha's request. Patient and his are agreeable with this plan. This will occur in the next 2 weeks. He has been started on Plavix due to his symptomatic carotid disease, as well as in preparation for his probable TCAR procedure. Patient also has severe left ICA stenosis of over 90% by CTA, but is asymptomatic from this presently. He will also likely undergo carotid endarterectomy versus TCAR to the left side at a later date. Patient and his are advised to call our office with any questions or concerns. They are agreeable to this plan. Thank you for letting us participate in the care of this patient. Signature Line Electronic Signature on File CC: Magen Montero PA-C [address] [id number] * CC: Shanell Taylor PA-C [facility] [address] [address] * Electronically Reviewed/Signed by: Milvia Canela PA-C Author Signature Dt/Tm:12/11/2021 04:06 PM [facility] [address] [place] [address] Electronically Reviewed/Signed by: MD Saad Connors Signature Dt/Tm: 12/15/2021 12:16 PM Dog Bather [facility] [address] [place] [address] LM Result Type: HVI Outpt Note Date of Service: December 11, 2021 15:36 EDT Authorization Status: Final Author or Import Date: ALESHA Canela, Milvia on December 11, 2021 16:06 EDT Verified By: MD Josefina, Tin Mendoza on December 15, 2021 12:16 EDT Encounter info: [id number], [place] [address], Clinic, 12/11/2021 - 12/11/2021 Allergies Allergy/AdvReac Type Severity Reaction Status Date / Time No Known Allergies Allergy Verified 12/15/21 12:36 Home Medications Medication Instructions Recorded Confirmed Type aspirin 81 mg tablet,delayed 81 mg PO QAM 11/13/21 12/15/21 History release insulin glargine 100 unit/mL (3 20 unit subcut BID 11/13/21 12/15/21 History mL) subcutaneous pen (Basaglar KwikPen U-100 Insulin) rosuvastatin 10 mg tablet 10 mg PO HS 11/13/21 12/15/21 History Plavix 1 tab PO QAM 12/15/21 12/15/21 History valsartan 320 1 tab PO QAM 12/15/21 12/15/21 History mg-hydrochlorothiazide 12.5 mg tablet Past Med/Surg History Medical History (Updated 12/16/21 @ 08:49 by Lucila Frey PA-C) Carotid stenosis critical (>90%) stenosis of the left ICA and >75% stenosis of right ICA History of gout History of kidney stones History of neurological signs and symptoms confusion, blurred vision-work up demonstrating critical carotid stenosis, advised by vascular to call 911 if recurrence of neurological symptoms Hyperlipemia Hypertension controlled, stable per pt Mild concentric left ventricular hypertrophy (LVH) Morbid obesity Type 2 diabetes mellitus IDDM Surgical History History of appendectomy History of cystoscopy History of plastic surgery Severe laceration to lower lip from power saw History of reverse total replacement of right shoulder joint (~08/2019) 08/11/19: Grade 1 view Glidescope#4 ETT 8 + PNB. History of surgery on extremity L LEG/ ROYCE PLACED Family History Other No family history of adverse response to anesthesia Social History Smoking Status: Former smoker Second Hand Exposure: No; Hx Alcohol Use: No Hx Substance Use: No Preferred Language: Sinhala Communication Ability: Effective Focusing Machine Operator Required: No Beliefs That Will Affect Care: None Current Living Situation: Spouse Feels Safe at Home: Yes Assistive Devices: Denture - Upper and Glasses
[2021-12-19] MEDS ORDERED: SODIUM CHLORIDE 0.9% 1000ML IV SCH (06:00)
[2021-12-19] MEDS ORDERED: ONDANSETRON INJ 2 MG/ML 2 ML VIAL ONE ×2 (06:53→09:05)
[2021-12-19] MEDS ORDERED: ROCURONIUM BROMIDE 10 MG/ML 5 ML VIAL IV ONE (06:53)
[2021-12-19] MEDS ORDERED: HEPARIN SOD (PORCINE) 1000 UNIT/ML ONE (06:53)
[2021-12-19] MEDS ORDERED: PROPOFOL IV EMULSION 10 MG/ML 20 ML VIAL IV ONE (06:53)
[2021-12-19] MEDS ORDERED: GLYCOPYRROLATE 0.2 MG/ML VIAL ONE ×3 (06:53→09:39)
[2021-12-19] MEDS ORDERED: LIDOCAINE 2% MPF LOCAL 5 ML VIAL INFIL ONE (06:53)
[2021-12-19] MEDS ORDERED: MIDAZOLAM HCL 1 MG/ML 2ML VIAL ONE (06:54)
[2021-12-19] MEDS ORDERED: DEXAMETHASONE SOD INJ 4 MG/ML VIAL ONE (06:54)
[2021-12-19] MEDS ORDERED: NEOSTIGMINE METHYLSULFATE 1 MG/ML 10ML VIAL ONE (06:54)
[2021-12-19] MEDS ORDERED: PHENYLEPHRINE HCL 10 MG/ML VIAL ONE (06:54)
[2021-12-19] MEDS ORDERED: fentaNYL citrate 100 MCG/2 ML VIAL ONE ×2 (06:54→09:43)
[2021-12-19] MEDS ORDERED: NITROGLYCERIN/D5W 100 MCG/ML BTL ONE (07:01)
[2021-12-19 07:05] LABS: BUN Creatinine Ratio 18.5 (10-20); Calcium 9.6 mg/dl (8.5-10.1); Creatinine Clr Calc Pharmacy 65.7 ml/min; Est GFR (Non-African American) 44.9 ml/min; Potassium 3.7 mmol/L (3.5-5.1)
[2021-12-19] MEDS ORDERED: GELATIN SPONGE SZ 100 ONE (07:22)
[2021-12-19] MEDS ORDERED: THROMBIN FOR SOLN 20000 UNIT KIT ONE (07:22)
--- NOTE | 2021-12-19 07:27 | History & Physical Bridge Note ---
Date of Service December 19, 2021 History & Physical Bridge Note I have examined the patient, reviewed the History & Physical and in the interval since the performance of the History & Physical I have noted the following changes of clinical significance: no changes noted
[2021-12-19] MEDS ORDERED: SUCCINYLCHOLINE CHLORIDE 20 MG/ML 10 ML VIAL IV ONE (08:07)
[2021-12-19] MEDS ORDERED: ePHEDrine sulfate 50 MG/ML SYR ONE (08:43)
[2021-12-19] MEDS ORDERED: CISATRACURIUM BESYLATE IV SOLN 2 MG/ML 10 ML VIAL IV ONE (08:46)
[2021-12-19] MEDS ORDERED: VISIPAQUE IV ONE (09:27)
--- NOTE | 2021-12-19 09:56 | Operative Report ---
Post Operative Report Pre & Post Diagnosis Operation Date: 12/19/21 08:00 Pre-Op Diagnosis: Right Internal Carotid Artery Stenosis, Symptomatic Post-Op Diagnosis: Right Internal Carotid Artery Stenosis, Symptomatic I identified the patient and participated in the time-out.: Yes Procedure Operation Date: 12/19/21 08:00 Actual Procedures p Right Transcarotid Artery Revascularization(Right) - Tin Rocha MD Surgeon Tin Rocha MD Bow Rehairer none Estimated Blood Loss 20 Findings Consistent with Post-Op Diagnosis Specimens none Anesthesia Type General Complications none Disposition Accompanied Patient To Recovery: No Disposition: Recovery Room Indications This is a 76-year-old gentleman who was seen for amaurosis fugax of his right eye as well as left upper extremity weakness which was transient x2. He was found to have bilateral significant carotid disease. He is a TCAR candidate. We went over the risk option benefits of TCAR versus endarterectomy. He elected to go ahead with the TCAR. I have discussed the risks options and benefits of the procedure with the patient. The patient understands the risks options and benefits and agrees to the procedure. Description of Procedure The patient was taken to the operating room and placed in supine position. After general anesthesia was accomplished the groins and right side of the neck and chest were prepped and draped in a sterile manner. Timeout was performed and the patient was identified. A transverse incision was made just above the clavicle between the heads of the sternocleidomastoid. This was carried down to where the common carotid artery was identified. It was isolated and slung with an umbilical tape. It was given 15080qgprt of heparin at that time. Ultrasound was then used to localize the left common femoral vein. The vein was patent and compressed easily. Under ultrasound guidance the left common femoral vein was punctured and the venous sheath was inserted. This was aspirated and flushed with heparinized saline. An ACT at that time was 277. Using micropuncture technique the common carotid artery was punctured. The micro sheath was inserted to 3 cm. Injection was then done showing the bifurcation. There was a significant lesion seen at the origin of the internal carotid artery on the right side. We then inserted the J-wire and keep it short of the bifurcation of the carotid artery. The TCAR sheath was inserted. Once it was in place and held against the artery it was sutured to the chest wall and the incision edge. We then flushed the tubing appropriately. The venous return tubing was clamped onto the TCAR sheath. It was flushed through and then attached to the venous inflow sheath in the left groin. The sheath was checked for flow. We then inserted a 5.5 x 3 balloon backloaded on the wire. The wire was passed through the lesion into the petrous portion of the internal carotid. The 5.5 balloon was then advanced to the lesion. The lesion was then predilated with the 5 mm balloon. The balloon was removed. We then inserted the 10 x 40 stent. This was deployed across the lesion without difficulty. The catheter was removed. The carotid was allowed to go 2 minutes with flow reversal. Completion angiogram was done at that time which showed a mild residual stenosis. We post ballooned the stent with the 5.5 x 3 balloon with good results. Again after the angio was done and the wire was removed we allowed 2 minutes of flow reversal to occur. A that point the common carotid artery was unclamped. The venous return tubing was clamped and removed from the TCAR sheath. The blood was allowed to flow back into the venous system. Once this was completed the sheath was pulled from the groin and pressure was applied. The TCAR sheath was then removed and the 5-0 Prolene suture securely tied. Hemostasis was noted of the puncture site. Wound was irrigated with Ancef solution. Adequate hemostasis was obtained of the wound. Once this was noted the wound was closed in usual fashion using a 3-0 Vicryl suture for the subcutaneous layer and nata for the skin edges. Sterile dressing were applied. The patient left the operation room in satisfactory condition and tolerated the procedure well. All needle and sponge counts were correct at the end of the procedure. I attest to the content of the Intraoperative Record and any orders documented therein. Any exceptions are noted below.
[2021-12-19] MEDS ORDERED: ONDANSETRON INJ 2 MG/ML 2 ML VIAL IV PRN (09:57)
[2021-12-19] MEDS ORDERED: ePHEDrine sulfate 50 MG/ML AMP IV PRN (09:57)
[2021-12-19] MEDS ORDERED: NALOXONE HCL 0.4 MG/1 ML VIAL/CARP IV PRN (09:57)
[2021-12-19] MEDS ORDERED: LABETALOL HCL IV 5 MG/ML 20ML IV PRN (09:57)
[2021-12-19] MEDS ORDERED: FLUMAZENIL 0.1 MG/1 ML 10 ML VIAL IV PRN (09:57)
[2021-12-19] MEDS ORDERED: fentaNYL citrate 100 MCG/2 ML VIAL IV PRN (09:57)
[2021-12-19] MEDS ORDERED: PROMETHAZINE HCL 12.5 MG in SODIUM CHLORIDE 0.9% 50 ML IV PRN (09:57)
[2021-12-19] MEDS ORDERED: ATROPINE SULFATE 0.1 MG/ML 10ML SYR IV PRN (09:57)
[2021-12-19] MEDS ORDERED: ePHEDrine sulfate 50 MG/ML AMP ONE (10:15)
--- NOTE | 2021-12-19 10:56 | Anesthesiology Progress Note ---
Date of Service December 19, 2021 Anesthesia Post Procedure Vital Signs Vital Signs: Temp Pulse Pulse Resp BP BP BP 12/19/21 10:30 66 10 L 96/61 L 105/43 L 12/19/21 10:20 66 11 L 94/52 L 90/42 L 12/19/21 10:10 70 12 109/53 L 117/44 L 12/19/21 10:00 36.3 C L 79 15 103/43 L 131/52 L 12/19/21 06:16 36.7 C 96 H 20 195/80 H 173/83 H Pulse Ox O2 Del Method O2 Flow Rate 12/19/21 10:30 98 Oxymask 3 12/19/21 10:20 98 Oxymask 5 12/19/21 10:10 98 Oxymask 5 12/19/21 10:00 95 Oxymask 5 12/19/21 06:16 97 Room Air Transfer of Care Handoff Completed per policy Notes Mental Status: alert / awake / arousable Patient Amnestic to Procedure: Yes Nausea / Vomiting: adequately controlled Pain: adequately controlled Airway Patency, RR, SpO2: stable & adequate BP & HR: stable & adequate Hydration State: stable & adequate Anesthetic Complications: no major complications apparent
[2021-12-19] MEDS ORDERED: CARBOHYDRATES FOR HYPOGLYCEMIA PO PRN (11:15)
[2021-12-19] MEDS ORDERED: GLUCAGON FOR INJ 1 MG VIAL IM PRN (11:15)
[2021-12-19] MEDS ORDERED: GLUCOSE 10 TAB/TUBE PO PRN (11:15)
[2021-12-19] MEDS ORDERED: GLUCOSE 40% GEL 15 GM TUBE PO PRN (11:15)
[2021-12-19] MEDS: oxyCODONE/ACETAMINOPHEN 5mg/325mg TAB PO PRN ×3 (11:15→22:13)
[2021-12-19] MEDS ORDERED: DEXTROSE 50% 50 ML SYRINGE IV PRN (11:15)
[2021-12-19] MEDS: LACTATED RINGER'S 1,000 ML IV SCH ×2 (11:16→19:17)
--- NOTE | 2021-12-19 11:51 | Critical Care Consultation ---
Date of Consultation December 19, 2021 Assessment & Plan (1) Morbid obesity: (2) Carotid stenosis: (3) Type 2 diabetes mellitus: (4) Hypertension: Plan Impression: 76-year-old male with symptomatic carotid stenosis status post TCAR. He is hemodynamically stable in the ICU and doing well. Recommendations: 1. Status post TCAR: Continue management per vascular surgery. Wound appears clean dry and intact. He is neurologically intact. 2. Hypertension: Continue outpatient hypertensives. Keep blood pressure within parameters per vascular surgery. 3. Diabetes: Continue outpatient medications. Glycemic control per ICU protocol. 4. Mild renal insufficiency: Appears at baseline. Continue to follow kidney function. Electrolytes are stable. Acid-base status stable. 5. Patient's other critical care issues have been well addressed by the vascular surgery service. Will follow for 24 hours. Feel free to contact us with additional or progressive critical care issues. History of Present Illness Attending Physician: Tin Rocha MD History of Present Illness Asked by vascular surgery consulted to assist in critical care management this patient post transcarotid arterial revascularization on the right. The patient is a 76-year-old male with morbid obesity hypertension and diabetes. Patient initially presented with emesis for BX of the right and left upper extremity weakness. He had significant carotid disease. He was seen by vascular surgery and was given option of endarterectomy versus TCAR. He elected to proceed to TCAR which was conducted today. Patient is brought back to the ICU. He is awake alert and conversant. His blood pressure is stable. He has no neurological complaints. Allergies Allergy/AdvReac Type Severity Reaction Status Date / Time No Known Allergies Allergy Verified 12/19/21 06:07 Home Medications Medication Instructions Recorded Confirmed Type aspirin 81 mg tablet,delayed 81 mg PO QAM 11/13/21 12/19/21 History release insulin glargine 100 unit/mL (3 20 unit subcut BID 11/13/21 12/19/21 History mL) subcutaneous pen (Basaglar KwikPen U-100 Insulin) rosuvastatin 10 mg tablet 10 mg PO HS 11/13/21 12/19/21 History valsartan 320 1 tab PO QAM 12/15/21 12/19/21 History mg-hydrochlorothiazide 12.5 mg tablet clopidogrel 75 mg tablet (Plavix) 75 mg PO DAILY 12/19/21 12/19/21 History Patient History Medical History (Updated 12/19/21 @ 12:09 by Marquise Presley MD) Carotid stenosis critical (>90%) stenosis of the left ICA and >75% stenosis of right ICA History of gout History of kidney stones History of neurological signs and symptoms confusion, blurred vision-work up demonstrating critical carotid stenosis, advised by vascular to call 911 if recurrence of neurological symptoms Hyperlipemia Hypertension controlled, stable per pt Mild concentric left ventricular hypertrophy (LVH) Morbid obesity Type 2 diabetes mellitus IDDM Surgical History History of appendectomy History of cystoscopy History of plastic surgery Severe laceration to lower lip from power saw History of reverse total replacement of right shoulder joint (~08/2019) 08/11/19: Grade 1 view Glidescope#4 ETT 8 + PNB. 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 Beliefs That Will Affect Care: None Current Living Situation: Spouse Other Information That Helps Us Care for You: No Feels Safe at Home: Yes Safety Concerns: Feels Safe At This Time Assistive Devices: None Assistive Devices Comment: upper partial denture Review of Systems Review of Systems: All systems reviewed & are unremarkable except as noted in Subjective Physical Exam Constitutional: WD/WN, vitals as above Neck: trachea midline, no thyromegaly Respiratory: normal respiratory effort, lungs clear to auscultation Cardiovascular: RRR, no murmur, no edema Gastrointestinal (Abdomen): normal bowel sounds, soft, nontender, no hepatosplenomegaly Musculoskeletal: Extremities: extremities normal to inspection Skin: no rashes, warm and dry Neurologic: Nonfocal exam Lymphatic: no cervical lymphadenopathy Results & Data Results & Data ([facility]) Vital Signs (Past 12 Hours) Vital Signs Temp Pulse Pulse Pulse Resp BP BP 12/19/21 11:30 67 18 12/19/21 11:15 63 22 12/19/21 11:08 66 23 124/68 12/19/21 10:30 66 10 L 12/19/21 10:20 66 11 L 12/19/21 10:10 70 12 12/19/21 10:00 36.3 C L 79 15 12/19/21 06:16 36.7 C 96 H 20 195/80 H BP BP Pulse Ox O2 Del Method O2 Flow Rate 12/19/21 11:30 98 12/19/21 11:15 98 12/19/21 11:08 97 Nasal Cannula 2 12/19/21 10:30 96/61 L 105/43 L 98 Oxymask 3 12/19/21 10:20 94/52 L 90/42 L 98 Oxymask 5 12/19/21 10:10 109/53 L 117/44 L 98 Oxymask 5 12/19/21 10:00 103/43 L 131/52 L 95 Oxymask 5 12/19/21 06:16 173/83 H 97 Room Air Critical Care Results & Data Vital Signs (Past 12 Hours) Vital Signs Temp Pulse Pulse Pulse Resp BP BP 12/19/21 11:30 67 18 12/19/21 11:15 63 22 12/19/21 11:08 66 23 124/68 12/19/21 10:30 66 10 L 12/19/21 10:20 66 11 L 12/19/21 10:10 70 12 12/19/21 10:00 36.3 C L 79 15 12/19/21 06:16 36.7 C 96 H 20 195/80 H BP BP Pulse Ox O2 Del Method O2 Flow Rate 12/19/21 11:30 98 12/19/21 11:15 98 12/19/21 11:08 97 Nasal Cannula 2 12/19/21 10:30 96/61 L 105/43 L 98 Oxymask 3 12/19/21 10:20 94/52 L 90/42 L 98 Oxymask 5 12/19/21 10:10 109/53 L 117/44 L 98 Oxymask 5 12/19/21 10:00 103/43 L 131/52 L 95 Oxymask 5 12/19/21 06:16 173/83 H 97 Room Air Lab & Micro Results (Past 24 Hours) No Data to Display Na 137 mmol/L (136-145) 12/19/21 K 3.7 mmol/L (3.5-5.1) 12/19/21 Cl 102 mmol/L (98-107) 12/19/21 CO2 27 mmol/L (21-32) 12/19/21 Anion Gap 8 (3-11) 12/19/21 BUN 28 mg/dl (6-23) H 12/19/21 Creatinine 1.51 mg/dl (0.6-1.4) H 12/19/21 Estimated GFR ( Amer) 52.0 ml/min 12/19/21 Estimated GFR (Non-Af Amer) 44.9 ml/min 12/19/21 BUN/Creatinine Ratio 18.5 (10-20) 12/19/21 Glu 118 mg/dl (70-99(Fasting)) H 12/19/21 Ca 9.6 mg/dl (8.5-10.1) 12/19/21 Calcium Level 9.6 mg/dl (8.5-10.1) 12/19/21 06:15 I & O Totals 24 Hours 12/18/21 12/19/21 12/20/21 06:59 06:59 06:59 Intake Total 1072.5 / 1072.5 Output Total 20 / 20 Balance 1052.5 / 1052.5 Cumulative 12/15/21 11:09 thru 12/19/21 11:08 Intake Total 1072.5 Output Total 20 Balance 1052.5 RT Ventilator Mngmt (Last Documented) Ventilator Ordered Settings Respiratory Rate 18 12/19/21 11:30 Ventilator - PT Measurements Respiratory Rate 18 Coding Level of Care Code 68722 Inpt Consult Level 3 Diagnoses Morbid obesity E66.01 Carotid stenosis I65.29 Type 2 diabetes mellitus E11.9 Hypertension I10
[2021-12-19] MEDS: ceFAZolin 2000MG 2,000 MG/15 ML SYR IV SCH ×2 (16:43→22:59)
[2021-12-19] MEDS: LANTUS PER UNIT CHARGE SQ SCH (20:36)
[2021-12-19] MEDS ORDERED: ROSUVASTATIN CALCIUM 10 MG TAB PO SCH (21:00)
[2021-12-20] MEDS: LACTATED RINGER'S 1,000 ML IV SCH ×2 (03:27→08:45)
--- NOTE | 2021-12-20 08:05 | Critical Care Progress Note ---
Date of Service December 20, 2021 Assessment & Plan (1) Morbid obesity: (2) Carotid stenosis: (3) Type 2 diabetes mellitus: (4) Hypertension: Plan Impression: 76-year-old male with symptomatic carotid stenosis status post TCAR. He is hemodynamically stable in the ICU and doing well. Recommendations: 1. Status post TCAR: Continue management per vascular surgery. Wound appears clean, dry and intact. He is neurologically intact. 2. Hypertension: Continue outpatient hypertensives. Keep blood pressure within parameters per vascular surgery. 3. Diabetes: Continue outpatient medications. Glycemic control per ICU protocol. 4. Mild renal insufficiency: Appears at baseline. Defer follow-up labs to vascular surgeon. 5. Patient's other critical care issues have been well addressed by the vascular surgery service. We will follow the patient until he is downgraded or d ischarged from the ICU. Admission and Anticipated Discharge Date Admission Date: December 19, 2021 Subjective Patient denies any complaints currently. Tolerating diet well. No chest pain or shortness of breath. Currently on 2 L of oxygen via nasal cannula saturating 98%. Review of Systems Review of Systems: All systems reviewed & are unremarkable except as noted in HPI & below Physical Exam Constitutional: WD/WN, vitals as above Neck: trachea midline, no thyromegaly Respiratory: normal respiratory effort, lungs clear to auscultation Cardiovascular: RRR, no murmur, no edema Gastrointestinal (Abdomen): normal bowel sounds, soft, nontender, no hepatosplenomegaly Musculoskeletal: Extremities: extremities normal to inspection Skin: no rashes, warm and dry Neurologic: Nonfocal exam Lymphatic: no cervical lymphadenopathy Results & Data Results & Data ([facility]) Vital Signs (Past 12 Hours) Vital Signs Temp Pulse Resp BP Pulse Ox O2 Del Method O2 Flow Rate 12/20/21 05:00 66 22 154/62 H 98 Nasal Cannula 2 12/20/21 04:00 55 L 16 123/57 L 99 Nasal Cannula 2 12/20/21 04:12 36.5 C 12/20/21 03:00 55 L 18 129/61 96 Nasal Cannula 2 12/20/21 02:00 54 L 15 109/53 L 98 Nasal Cannula 2 12/20/21 01:00 56 L 14 117/57 L 97 Nasal Cannula 2 12/20/21 00:00 58 L 14 115/64 97 Nasal Cannula 2 12/20/21 00:00 36.6 C 12/19/21 23:00 58 L 21 140/61 97 Nasal Cannula 2 12/19/21 22:00 60 18 125/61 93 Room Air 12/19/21 21:00 53 L 12 96 Room Air Coding Level of Care Code 03134 Subseq Hosp Care Lvl 2 Diagnoses Morbid obesity E66.01 Carotid stenosis I65.29 Type 2 diabetes mellitus E11.9 Hypertension I10
[2021-12-20] MEDS: LANTUS PER UNIT CHARGE SQ SCH (08:14)
--- NOTE | 2021-12-20 08:59 | Surgery Progress Note ---
Date of Service December 20, 2021 Assessment & Plan (1) Stenosis of right internal carotid artery: Plan: Patient underwent a right TCAR without any complications. Can be d/c'd today. Admission and Anticipated Discharge Date Admission Date: December 19, 2021 Subjective Patient with no complaints. No neuro deficits that he can tell. Physical Exam Constitutional: WD/WN, vitals as above Neck: trachea midline Respiratory: normal respiratory effort; no respiratory distress Cardiovascular: Rate/Rhythm: regular rate and regular rhythm Musculoskeletal: no cyanosis or clubbing, extremities motor strength 5/5 Skin: + incision (dry and clean) Neurologic: normal touch/pain/proprioception, CN's II-XI intact bilaterally and moves all extremities; no focal motor deficits Psychiatric: Orientation: alert and oriented x 3 Results & Data ([facility]) Vital Signs (Past 12 Hours) Vital Signs Temp Pulse Resp BP Pulse Ox O2 Del Method O2 Flow Rate 12/20/21 07:00 65 12/20/21 08:02 61 15 99 12/20/21 08:02 149/43 H 12/20/21 08:00 58 L 17 98 12/20/21 07:00 55 L 17 97 12/20/21 07:00 131/60 12/20/21 06:00 55 L 19 98 12/20/21 06:00 126/61 12/20/21 08:00 36.6 C 12/20/21 08:00 66 127/55 L 12/20/21 05:00 66 22 154/62 H 98 Nasal Cannula 2 12/20/21 04:00 55 L 16 123/57 L 99 Nasal Cannula 2 12/20/21 04:12 36.5 C 12/20/21 03:00 55 L 18 129/61 96 Nasal Cannula 2 12/20/21 02:00 54 L 15 109/53 L 98 Nasal Cannula 2 12/20/21 01:00 56 L 14 117/57 L 97 Nasal Cannula 2 12/20/21 00:00 58 L 14 115/64 97 Nasal Cannula 2 12/20/21 00:00 36.6 C 12/19/21 23:00 58 L 21 140/61 97 Nasal Cannula 2 12/19/21 22:00 60 18 125/61 93 Room Air 12/19/21 21:00 53 L 12 96 Room Air
[2021-12-20] MEDS ORDERED: CLOPIDOGREL BISULFATE 75 MG TAB PO SCH (09:00)
[2021-12-20] MEDS ORDERED: VALSARTAN 80 MG TAB PO SCH (09:00)
[2021-12-20] MEDS ORDERED: ASPIRIN 81 MG ECTAB PO SCH (09:00)
[2021-12-20] MEDS ORDERED: hydroCHLOROthiazide 25 MG TAB PO SCH (09:00)
--- NOTE | 2021-12-22 10:02 | Discharge Summary ---
Date of Service December 22, 2021 Admission HPI Per Admitting Provider Name: MANSOOR SMITH Patient Number: [id number] : 1945 Date of Service: 12/11/2021 Chief Complaint: _New patient consultation for carotid stenosis HPI: _Mr. Smith is an elderly male who presents to Dr. Rocha's vascular surgery clinic today as a new patient in consultation for a bilateral ICA stenosis. Patient is a somewhat poor historian himself, but his is also present who provides some history. The patient does not remember all of the events, but his is able to describe these in detail. Patient's states that she began to notice intermittent episodes of confusion/disorientation which began occurring in August 2021. She states that he would be perfectly fine 1 moment, but then would have trouble remembering how to open the garage door, or how to turn on the stove. She states that a few moments later he would be fine. She states that this happened handful of times over the summer. Additionally the patient admits to a foster clouded vision over the bottom half of his right eye which would last maybe 10 seconds each time, which has occurred 3-4 times since August. 2 weeks ago, the patient was mowing the grass at home, and developed sudden complete numbness and weakness of his left arm, which lasted about half hour. Patient denies any associated headache, or dizziness or near syncope. He denies any difficulty speaking or swallowing, facial droop. Patient's states that she brought this to the attention of their PCP, who ordered the patient to have a carotid ultrasound. After the results indicated significant stenosis, they were referred to cardiology, who had the patient undergo an echocardiogram, as well as quality assurance monitor body. Patient eventually had a neck CT angiogram, which demonstrated severe bilateral ICA stenosis, and he was then referred to Dr. Rocha for surgical evaluation. Patient has recently been started on rosuvastatin. Patient currently denies headache, fever, chills, chest pain, shortness of breath, abdominal pain, nausea, vomiting, rest pain, claudication, nonhealing wounds or ulcers, other concerns. Review of systems: A total of 14 systems are reviewed and are negative aside from what is related in his HPI. Imaging: Patient did have a carotid ultrasound performed at [facility], which indicated over 70% stenosis of his bilateral ICAs. Neither the report nor the images for this were available for review. He then underwent a CTA of the neck at [facility] on 12/09/2021 which confirms over 90% stenosis of the left ICA, over 75% stenosis of the right ICA. Current Home Meds: (Last Updated 12/11 12:47) aspirin (aspirin 81 mg oral delayed release tablet) 81 mg PO Daily clopidogrel (Plavix 75 mg oral tablet) 75 mg PO Daily hydroCHLOROthiazide-valsartan (hydroCHLOROthiazide-valsartan 12.5 mg-320 mg oral tablet) 1 tab PO Daily insulin glargine (Basaglar KwikPen 100 units/mL subcutaneous solution) 20 unit subQ bid rosuvastatin (rosuvastatin 10 mg oral tablet) 10 mg PO Daily Allergies and Sensitivities: NKA Past Medical History: Problems: Carotid stenosis, symptomatic w/o infarct Type 2 diabetes mellitus Hypertension Enlarged prostate Gout Kidney stones Surgical history: Positive for appendectomy, cystoscopy, plastic surgery, reverse total right shoulder joint Family history: Positive for coronary artery disease, hypertension, diabetes, cancer, stroke Social history: Patient is a former smoker, having quit over 20 years ago. He denies alcohol or illicit drug use. He is and lives at home with his . OBJECTIVE Vitals: Last Updated 12/11/21 12:02 Date Temp BP Location Pulse RR SpO2 Pain 12/11/21 130/78 Right Arm 0 12/11/21 130/58 Left Arm 79 97 Vital Signs are the last 3 documented. No Orthostatic Data Available Height and Weight: Last Updated 12/11/21 12:01 Date BMI Wt(kg) Wt(lb) Method Ht(cm) (ft-in) Method 12/11/21 157.2 346 Standing Scale Heights and Weights are the last 3 documented. Physical Exam Constitutional: In general patient is an obese but healthy-appearing well- nourished well-developed elderly male no distress. He is alert and oriented without any focal deficits. His head is normocephalic and atraumatic. His neck is supple and nontender with a midline trachea. His left carotid does demonstrate a faint high-pitched bruit. His posterior left neck does have an old scar from an ax injury. His heart is regular, his lungs are clear throughout. His abdomen is soft and nontender with normoactive bowel sounds in all 4 quadrants. His brachial and radial pulses are +3. His femoral pulses are +3. His lower extremity distal pulses are +2. He has brisk capillary refill and no sign of distal ischemia. He does have some skin changes consistent with chronic venous insufficiency, as well as +2 pitting edema bilaterally. ASSESSMENT: _ PLAN: _ 1 ) _carotid stenosis Patient currently has symptoms consistent with right hemispheric TIA versus CVA, with his most recent symptoms being left arm weakness and numbness which occurred about 2 weeks ago. He appears to have significant stenosis in his right ICA, for which we recommend that he undergo carotid endarterectomy versus TCAR. The procedures, risks benefits and alternatives were discussed at length with the patient to Dr. Rocha's request. Patient and his are agreeable with this plan. This will occur in the next 2 weeks. He has been started on Plavix due to his symptomatic carotid disease, as well as in preparation for his probable TCAR procedure. Patient also has severe left ICA stenosis of over 90% by CTA, but is asymptomatic from this presently. He will also likely undergo carotid endarterectomy versus TCAR to the left side at a later date. Patient and his are advised to call our office with any questions or concerns. They are agreeable to this plan. Thank you for letting us participate in the care of this patient. Signature Line Electronic Signature on File CC: Magen Montero PA-C [address] [id number] * CC: Shanell Taylor PA-C [facility] [address] [place] [id number] * Electronically Reviewed/Signed by: Milvia Canela PA-C Author Signature Dt/Tm:12/11/2021 04:06 PM [facility] [address] [place] [address] Electronically Reviewed/Signed by: MD Saad Connors Signature Dt/Tm: 12/15/2021 12:16 PM Supervisor [employer]ing [employer] Jazlyn [facility] [address] [place] [address] LM Result Type: HVI Outpt Note Date of Service: December 11, 2021 15:36 EDT Authorization Status: Final Author or Import Date: ALESHA Canela, Milvia on December 11, 2021 16:06 EDT Verified By: MD Josefina, Tin Mendoza on December 15, 2021 12:16 EDT Encounter info: [id number], [facility], Clinic, 12/11/2021 - 12/11/2021 Admission Exam Per Admitting Provider Constitutional: In general patient is an obese but healthy-appearing well- nourished well-developed elderly male no distress. He is alert and oriented without any focal deficits. His head is normocephalic and atraumatic. His neck is supple and nontender with a midline trachea. His left carotid does demonstrate a faint high-pitched bruit. His posterior left neck does have an old scar from an ax injury. His heart is regular, his lungs are clear throughout. His abdomen is soft and nontender with normoactive bowel sounds in all 4 quadrants. His brachial and radial pulses are +3. His femoral pulses are +3. His lower extremity distal pulses are +2. He has brisk capillary refill and no sign of distal ischemia. He does have some skin changes consistent with chronic venous insufficiency, as well as +2 pitting edema bilaterally. Principal Diagnosis 1. s/p R TCAR 2. Symptomatic R ICA stenosis Discharge Exam Constitutional WD/WN, vitals as above Neck trachea midline Respiratory normal respiratory effort; no respiratory distress Cardiovascular Rate/Rhythm: regular rate and regular rhythm Musculoskeletal no cyanosis or clubbing, extremities motor strength 5/5 Skin + incision (dry and clean) Neurologic normal touch/pain/proprioception, CN's II-XI intact bilaterally and moves all extremities; no focal motor deficits Psychiatric Orientation: alert and oriented x 3 Discharge Data Allergies Allergy/AdvReac Type Severity Reaction Status Date / Time No Known Allergies Allergy Verified 12/19/21 06:07 Consultations 12/19/21 09:56 Consult Hydro Station Operator Routine Procedures Performed Operation Date: 12/19/21 08:00 Actual Procedures p Right Transcarotid Artery Revascularization(Right) - Tin Rocha MD Ordered Studies 12/19/21 07:12 EV angio carotid external RT Routine US EV guide vascular access Routine Hospital Course (1) Stenosis of right internal carotid artery: POD #1 Patient underwent a right TCAR without any complications. Can be d/c'd today. Total Time Total Time Spent Total Time Spent (In Minutes): 0 Discharge Plan Discharge Items Patient Disposition: Home - Self-Care Reason For Visit: Right Internal Carotid Artery Stenosis, Symptomati Discharge Diagnosis: Right internal carotid stenosis, symptomatic Post TCAR Activity: Per Instructions section Non-emergency contact: Primary Care Provider Call non-emergency contact if: you have any medication questions, your symptoms worsen, your pain is concerning for you and your wound has increased drainage Follow-up/Referrals: Magen Montero PA-C [Primary Care Provider] - Diet: Carb Consistent or DM2 and Heart Healthy Addtl Attending Provider Instructions: SPECIAL CARE INSTRUCTIONS: Medications: * Continue to take Aspirin as directed. Incision Care: * You may shower, but do not rub incision. You may let the warm soapy water run over it. Be sure to dry the incision well after bathing. * Do not shave directly over the incision until it is healed. * DO NOT IMMERSE THE INCISION IN A TUB/POOL/etc. UNTIL HEALED. Restrictions: * Do not drive for at least one week or if you are still taking any narcotic pain medication. * Do not lift anything heavier than a gallon of milk for one week after going home. Possible Complications: * Numbness - It is normal to have some numbness around the incision. Numbness can extend beyond the incision to areas of the neck, ear and face. The numbness is due to bruising of nerves during the surgery and will gradually improve over a period of months. * Hoarseness/Difficulty Speaking and Swallowing - The bruising of nerves in the neck can also cause a hoarse voice, difficulty speaking or swallowing. This may improve over time, HOWEVER, if it continues for more than a few days please contact our office ([phone]). * Excessive Swelling - There will be some swelling immediately after surgery which usually resolves within one week. If you notice that the swelling is getting worse, notify your surgeon ([phone]). * Drainage/Bleeding - If there is any drainage or bleeding, it should be a very small amount (less than a teaspoon per day). If you have excessive bleeding or drainage from the incision, call your surgeon ([phone]) right away. ACTIVATION OF EMERGENCY MEDICAL SYSTEM: Call 911, immediately, if you experience any of the following: Warning Signs and Symptoms of Stroke: * Sudden numbness or weakness of the face, arm or leg, especially on one side of the body * Sudden confusion, trouble speaking or understanding * Sudden trouble seeing in one or both eyes * Sudden trouble walking, dizziness, loss of balance or coordination * Sudden severe headache with no cause Do not delay calling 911 if you experience any warning signs or symptoms of a stroke. Delay in seeking medical attention may affect what treatments can be given to you. Risk Factors for Stroke: You can reduce your chances of stroke by working with your medical provider to adopt a healthy lifestyle. Some specific ways to lower your chance of stroke are: * If you are a smoker, now is the time to stop smoking cigarettes * If you are diabetic, improve the control of your blood sugars * Avoid excessive amounts of alcohol * Control high blood pressure * Lose weight if you are overweight * Be sure to lead an active lifestyle * Eat a healthy diet low in salt, cholesterol and fat You should know about other risk factors for stroke that you are unable to control. These include: * Age 55 years or older * Male gender * Certain racial groups: , or / * Family History of Stroke, Mini stroke or Heart Attack * Sickle Cell Disease You will be receiving a call from the Vascular Surgery Nurse after you are discharged. FOLLOW UP VISIT: It is important for you to keep your follow up appointments with your medical provider. Keep any scheduled doctor appointments. Call [phone] to schedule a follow up appointment if one not already scheduled. Pending Studies at Discharge: No Stand-Alone Forms: My [facility], Smoking Cessation Medications and DC Order Prescriptions: New oxycodone-acetaminophen [Percocet] 5-325 mg tablet 1 tab PO Q8H PRN (Reason: pain) Qty: 10 0RF Continued aspirin 81 mg tablet,delayed release (DR/EC) 81 mg PO QAM rosuvastatin 10 mg tablet 10 mg PO HS insulin glargine [Basaglar KwikPen U-100 Insulin] 100 unit/mL (3 mL) insulin pen 20 unit subcut BID valsartan-hydrochlorothiazide 320-12.5 mg Tablet 1 tab PO QAM clopidogrel [Plavix] 75 mg Tablet 75 mg PO DAILY Discharge Orders: Discharge Order (Routine); Ordered 10/15/22 Ordered By: Tin Rocha Admission Data Admit Date/Time: 12/19/21 07:27 Attending Provider: Tin Rocha Admit Provider: Tin Rocha Primary Care Provider: Magen Montero Other Providers: Shaq Palomo ; Kelechi Oliva ; Evangelista Costello ; Farooq Au ; Juvencio Matthew ; Marquise Presley ; Madhavi De Anda ; Keaton Valera ; Nora Krueger Other Interventions: Discharge Summary Assessment (RN) Last Done: 12/20/21 09:28
== END 2021-12-20 10:55 | disposition home or self-care (01) | DRG 35 ==
LOC: ASU 05:46 → 1E 07:27
PROC: EV.TCAR (2021-12-19 08:00)

== ENCOUNTER 2022-08-12 07:06 | Inpatient (IN) ==
--- NOTE | 2022-08-10 15:29 | Anesthesiology Consultation ---
Date of Service August 10, 2022 Assessment & Plan (1) Encounter for pre-operative examination: - Check BSG AM DOS - COVID screening: Per assessment on 07/31: No known COVID-19 positive contacts or current COVID-19 related symptoms. Travel screen negative. Patient vaccinated. At surgeon discretion if preop Covid testing being done. - S/P Right TCAR (12/19/21): Grade view 1, MAC#3, ETT [address] [facility] Plan Pt requiring admission post operatively. Plan for recheck with COVID Almanzar AM DOS due to possibility that patient may have a roommate. OR aware. Almanzar order placed -[facility] AL[facility] Chart Review Chart Review: Acceptable Risk for Surgery and Patient NOT seen in Pre Admission Testing History Surgery Operation Date: 08/12/22 09:30 Proposed Procedures p Left Transcarotid Artery Revascularization - Tin Rocha MD Height/Weight Height: 5 ft 11 in Weight: 153.314 kg Allergies Allergy/AdvReac Type Severity Reaction Status Date / Time No Known Allergies Allergy Verified 07/31/22 12:41 Medications Home Medications Medication Instructions Recorded Confirmed Last Taken aspirin 81 mg tablet,delayed 81 mg PO QAM 11/13/21 07/31/22 12/19/21 04:00 release insulin glargine 100 unit/mL (3 20 unit subcut BID 11/13/21 07/31/22 12/18/21 20:00 mL) subcutaneous pen (Basaglar KwikPen U-100 Insulin) rosuvastatin 10 mg tablet 10 mg PO HS 11/13/21 07/31/22 12/18/21 20:00 valsartan 320 1 tab PO QAM 12/15/21 07/31/22 12/18/21 08:00 mg-hydrochlorothiazide 12.5 mg tablet clopidogrel 75 mg tablet (Plavix) 75 mg PO QAM 12/19/21 07/31/22 12/19/21 04:00 Past Medical History Medical History Carotid stenosis Right TCAR 12/[address] [facility] Neck CTA 05/2022- Progression of severe (greater than 95%) stenosis of the distal left common carotid and proximal left internal carotid arteries since CT of December 09, 2021. Short segment occlusion of the proximal left internal carotid artery with distal reconstitution could appear similar although is considered less likely. CKD (chronic kidney disease) History of gout History of kidney stones Hyperlipemia Hypertension controlled, stable per pt Mild concentric left ventricular hypertrophy (LVH) Morbid obesity Type 2 diabetes mellitus IDDM Past Family History Family History Other No family history of adverse response to anesthesia Past Surgical History Surgical History H/O vascular surgery right transcarotid artery revascularization ([facility] 2021) History of appendectomy History of cystoscopy History of plastic surgery Severe laceration to lower lip from power saw History of reverse total replacement of right shoulder joint 08/11/19: Grade 1 view Glidescope#4 ETT 8 + PNB. History of surgery on extremity LLE, + francisco javier Social History Smoking Status: Former smoker tobacco type: cigarettes Do You Dip or Chew Tobacco: No Smoking End Date: Hx Alcohol Use: No Hx Substance Use: No substance use type: does not use Testing Laboratory Results 08/10/22 WBC 9.97 H/H 13.6/39.3 PLATELETS 234 SODIUM 138 POTASSIUM 4.1 CHLORIDE 106 CO2 24 BUN 32 CREATININE 1.56 GLUCOSE 101 PT 15.7 INR 1.3 Electrocardiogram Date: 12/16/21 NSR, rate 65 bpm Chest X-Ray Date: 12/16/21 Cardiomediastinal and hilar silhouettes are within normal limits. No pneumothorax, pleural effusion, airspace consolidation or overt pulmonary edema. Degenerative changes of the spine and left shoulder. Right shoulder arthroplasty. IMPRESSION: No acute process. Echocardiogram Date: 12/02/21 EF 60-65% Normal LV systolic function Grade I diastolic dysfunction Mild cLVH No significant valvular pathology Other Testing Neck CTA Date: 05/29/22 Progression of severe (greater than 95%) stenosis of the distal left common carotid and proximal left internal carotid arteries since CT of December 09, 2021, as detailed above. Short segment occlusion of the proximal left internal carotid artery with distal reconstitution could appear similar although is considered less likely. Evaluation on this exam is difficult given the extent of calcified plaque. Interval right carotid revascularization with significant improvement in stenosis. Approximate 30% stenosis of the proximal right internal carotid artery, as described above. This has improved since CT of December 09, 2021.
[~2022-08-12 07:06] MED LIST changes: -ACETAMINOPHEN 500 MG TAB PO SCH; -BUPIVACAINE 0.5 % 5 MG/1 ML PF 10ML VIAL ONE; -CEFAZOLIN 3000MG 72.5 ML IV SCH; -FAMOTIDINE 20 MG TAB PO SCH; -GABAPENTIN 300 MG CAP PO SCH; -LR 15ML/HR IV SCH; -LR 60ML/HR IV SCH; -ROPIVACAINE 0.5% HCL/PF 150 MG, BUPIVACAINE 0.5% MPF 30 ML, EPINEPHrine 30MG/30ML (OR U... INSTIL SCH; +SODIUM CHLORIDE 0.9% 1000ML 1,000 ML IV SCH; -TRANEXAMIC ACID 1,000 MG **IV Intra-op IV SCH; -TRANEXAMIC ACID 1,000 MG **IV Pre-op IV SCH; -dexAMETHasone 4 MG TAB PO SCH
--- NOTE | 2022-08-12 08:01 | History & Physical Report ---
Date of Service August 12, 2022 Assessment & Plan (1) Stenosis of left internal carotid artery: Plan: Patient for a TCAR of his left carotid. I have discussed the risks options and benefits of the procedure with the patient. The patient understands the risks options and benefits and agrees to the procedure. History of Present Illness Chief Complaint: Left carotid stenosis Primary Care Provider: Magen Montero Mr. May is an elderly male who presents to Dr. Rocha's vascular surgery clinic today for a follow-up visit after undergoing a CTA of the neck to evaluate his carotid stenosis. Patient previously underwent a right-sided transcarotid artery revascularization in fall 2021 due to symptomatic carotid disease on that side. Imaging the at that time had also noted a severe stenosis of his left ICA, however, his right side was considered more urgent for treatment. He recently returned for follow-up, and imaging indicated a possible severe stenosis versus occlusion of his left ICA by ultrasound. We sent him for a CTA to better evaluate. He denies any symptoms of cerebrovascular insufficiency including amaurosis, extremity weakness numbness or tingling, difficulty speaking or swallowing, facial droop, sudden onset confusion, other complaints. Imaging: CTA performed at [facility] on 05/29/2022 demonstrates string sign of the left ICA, and a widely patent right ICA stent. Allergies Allergy/AdvReac Type Severity Reaction Status Date / Time No Known Allergies Allergy Verified 08/12/22 08:00 Home Medications Medication Instructions Recorded Confirmed Type aspirin 81 mg tablet,delayed 81 mg PO QAM 11/13/21 07/31/22 History release insulin glargine 100 unit/mL (3 20 unit subcut BID 11/13/21 07/31/22 History mL) subcutaneous pen (Basaglar KwikPen U-100 Insulin) rosuvastatin 10 mg tablet 10 mg PO HS 11/13/21 07/31/22 History valsartan 320 1 tab PO QAM 12/15/21 07/31/22 History mg-hydrochlorothiazide 12.5 mg tablet clopidogrel 75 mg tablet (Plavix) 75 mg PO QAM 12/19/21 07/31/22 History Past Med/Surg History Medical History Carotid stenosis Right TCAR 12/2021 at [facility] Neck CTA 05/2022- Progression of severe (greater than 95%) stenosis of the distal left common carotid and proximal left internal carotid arteries since CT of December 09, 2021. Short segment occlusion of the proximal left internal carotid artery with distal reconstitution could appear similar although is considered less likely. CKD (chronic kidney disease) History of gout History of kidney stones Hyperlipemia Hypertension controlled, stable per pt Mild concentric left ventricular hypertrophy (LVH) Morbid obesity Type 2 diabetes mellitus IDDM Surgical History H/O vascular surgery right transcarotid artery revascularization ([facility] 2021) History of appendectomy History of cystoscopy History of plastic surgery Severe laceration to lower lip from power saw History of reverse total replacement of right shoulder joint 08/11/19: Grade 1 view Glidescope#4 ETT 8 + PNB. History of surgery on extremity LLE, + francisco javier Family History Other No family history of adverse response to anesthesia Social History Smoking Status: Former smoker Smoking End Date: ; Second Hand Exposure: No; Do You Dip or Chew Tobacco: No; Tobacco Cessation Education Requested by Patient: No Hx Alcohol Use: No Hx Substance Use: No Preferred Language: Telugu Communication Ability: Effective Communication Ability Comment: [facility] Manager Technical Services Required: No Beliefs That Will Affect Care: None Current Living Situation: Spouse Other Information That Helps Us Care for You: No Feels Safe at Home: Yes Safety Concerns: Feels Safe At This Time Assistive Devices: Denture - Upper and Glasses Assistive Devices Comment: upper partial denture Physical Exam Physical Exam: Constitutional: In general patient is an overweight but healthy-appearing well- nourished well-developed elderly male no distress. He is alert and oriented without any focal deficits. His right neck demonstrates faint bruit. His supraclavicular incision on the right is well-healed. His heart is regular, his lungs are clear. Abd exam is benign. His upper extremity pulses are +3. Lower extremity exam was deferred today.
--- NOTE | 2022-08-12 08:01 | History & Physical Bridge Note ---
Date of Service August 12, 2022 History & Physical Bridge Note I have examined the patient, reviewed the History & Physical and in the interval since the performance of the History & Physical I have noted the following changes of clinical significance: no changes noted
[2022-08-12 08:16] LABS: BUN Creatinine Ratio 19.9 (10-20); Calcium 9.5 mg/dl (8.6-10.3); Creatinine Clr Calc Pharmacy 65.4 ml/min; Est GFR (African American) 53.8 ml/min; Est GFR (Non-African American) 46.4 ml/min; Potassium 3.9 mmol/L (3.5-5.1)
[2022-08-12] MEDS ORDERED: ATROPINE SULFATE 0.1 MG/ML 10ML SYR IV PRN (09:32)
[2022-08-12] MEDS ORDERED: LABETALOL HCL IV 5 MG/ML 20ML IV PRN (09:32)
[2022-08-12] MEDS ORDERED: ePHEDrine sulfate 50 MG/ML AMP IV PRN (09:32)
[2022-08-12] MEDS ORDERED: fentaNYL citrate PF 100 MCG/2 ML VIAL IV PRN (09:32)
[2022-08-12] MEDS ORDERED: PROMETHAZINE HCL 12.5 MG in SODIUM CHLORIDE 0.9% 50 ML IV PRN (09:32)
[2022-08-12] MEDS ORDERED: NALOXONE HCL 0.4 MG/1 ML VIAL/CARP IV PRN (09:32)
[2022-08-12] MEDS ORDERED: ONDANSETRON INJ 2 MG/ML 2 ML VIAL IV PRN (09:32)
[2022-08-12] MEDS ORDERED: FLUMAZENIL 0.1 MG/1 ML 10 ML VIAL IV PRN (09:32)
[2022-08-12] MEDS ORDERED: fentaNYL citrate PF 100 MCG/2 ML VIAL ONE ×2 (09:50→11:48)
[2022-08-12] MEDS ORDERED: BUPIVACAINE/EPINEPHRINE 0.5% MPF 1:200,000 30 ML VIAL ONE (10:56)
[2022-08-12] MEDS ORDERED: GELATIN SPONGE SZ 100 ONE (10:57)
[2022-08-12] MEDS ORDERED: THROMBIN FOR SOLN 20000 UNIT KIT ONE (10:57)
[2022-08-12] MEDS ORDERED: ceFAZolin 330 MG/ML 1 GM VIAL ONE (10:57)
[2022-08-12] MEDS ORDERED: LARYING-O-JET KIT (LTA) ONE (11:32)
[2022-08-12] MEDS ORDERED: LIDOCAINE 2% 20 MG/ML 5 ML SYR IV ONE (11:32)
[2022-08-12] MEDS ORDERED: ROCURONIUM BROMIDE 10 MG/ML 5 ML VIAL IV ONE ×3 (11:32→12:38)
[2022-08-12] MEDS ORDERED: PHENYLEPHRINE HCL 10 MG/ML VIAL ONE ×2 (11:32→12:34)
[2022-08-12] MEDS ORDERED: DEXAMETHASONE SOD INJ 4 MG/ML VIAL ONE (11:32)
[2022-08-12] MEDS ORDERED: PROPOFOL IV EMULSION 10 MG/ML 20 ML VIAL IV ONE (11:32)
[2022-08-12] MEDS ORDERED: ONDANSETRON INJ 2 MG/ML 2 ML VIAL ONE (11:32)
[2022-08-12] MEDS ORDERED: ePHEDrine sulfate 50 MG/ML SYR ONE (11:32)
[2022-08-12] MEDS ORDERED: VISIPAQUE IV ONE (12:05)
[2022-08-12] MEDS ORDERED: SURGICEL ABSORB HEMOSTAT 2IN X 14IN TOP ONE (12:32)
[2022-08-12] MEDS ORDERED: ATROPINE SULFATE 1MG/2.5ML SYR ONE (12:34)
[2022-08-12] MEDS ORDERED: GLYCOPYRROLATE 0.2 MG/ML VIAL ONE (12:34)
[2022-08-12] MEDS ORDERED: SUGAMMADEX SODIUM 200 MG/2 ML VIAL IV ONE (13:43)
--- NOTE | 2022-08-12 13:55 | Procedure Note ---
Angiogram Post Procedure Fluoroscopy Time (minutes): 53 Radiation (mGy): 995 Contrast: 35 Post Operative Report Pre & Post Diagnosis Operation Date: 08/12/22 09:30 Pre-Op Diagnosis: Stenosis of left internal carotid artery Post-Op Diagnosis: Stenosis of left internal carotid artery I identified the patient and participated in the time-out.: Yes Procedure Operation Date: 08/12/22 09:30 Actual Procedures p Left Transcarotid Artery Revascularization(Left) Attempted, ultrasound of right common femoral vein- Tin Rocha MD Surgeon Tin Rocha MD [employer] Luh,PAC Estimated Blood Loss 30 Findings Consistent with Post-Op Diagnosis Specimens none Anesthesia Type General Complications none Disposition Accompanied Patient To Recovery: No Disposition: Recovery Room Indications This is a 77-year-old gentleman who had bilateral severe stenosis of carotid arteries. He underwent a successful TCAR last year is now brought back for a left carotid TCAR. I have discussed the risks options and benefits of the procedure with the patient. The patient understands the risks options and benefits and agrees to the procedure. Description of Procedure The patient was taken to the operating room and placed in supine position. After general anesthesia was accomplished the groins and left side of the neck and chest were prepped and draped in a sterile manner. Timeout was performed and the patient was identified. A transverse incision was made just above the clavicle between the heads of the sternocleidomastoid. This is carried down to where the common carotid artery was identified. It was isolated. It was slung with umbilical tape. Next the U stitch was placed in the common carotid artery with a 5-0 Prolene suture. Patient was given 00139 heparin at that time. Ultrasound was then used to localize the right common femoral vein. The vein was patent and compressed easily. Under ultrasound guidance the right common femoral vein was punctured and the venous sheath was inserted. This was aspirated and flushed with heparinized saline. ACT at that time was 295. Using micropuncture technique the common carotid artery was punctured. The micro sheath was inserted to 3 cm. Injection was then done showing the bifurcation. There was a significant lesion seen at the origin of the internal carotid artery on the left side which appeared to be near occlusive and a right angle of the carotid.. We then inserted the J-wire left and short of the lesion. The micro sheath was removed and the TCAR sheath was inserted. Once it was in place and held against the artery it was sutured to the chest wall and the incision edge. We then flushed the tubing appropriately. The venous return to was clamped onto the TCAR sheath. It was flushed through and then attached to the venous inflow sheath in the left groin. Sheath was checked for flow. The saline cleared nicely. The common carotid artery was then clamped. Flow reversal was instituted. We rechecked the flow in the femoral sheath. The flow was minimal. We inserted the 014 wire with a Kumpe catheter due to the angle. We cannot cannulate the internal carotid artery at that point. We then inserted a 4 x 35 balloon and tried to dilate the external and common carotid artery. This opened up the external more and are flow reversal was in a more brisk rate. We then tried multiple catheters and wires to try to cannulate the internal. We inserted a 5 x 35 balloon to try and dilate the common carotid where a large plaque obstructed the internal carotid origin. Again using multiple catheters and wires we still cannot cannulate the internal carotid artery. We did get some minimal on our pass into the plaque of the proximal internal carotid artery. Patient was rebolused with heparin during this case. ACT was over 300 at that point. At this point time we abandon the TCAR attempt. We allowed 2 minutes of flow reversal prior to unclamping. At that point the common carotid artery was unclamped. The venous return tubing was clamped and removed from the TCAR sheath. The blood was allowed to flow back into the venous system. Once this was completed the sheath was pulled from the groin and pressure was applied. The TCAR sheath was then removed and the 5-0 Prolene suture securely tied. Hemostasis was noted of the puncture site. Wound was irrigated with Ancef solution. Adequate hemostasis was obtained of the wound. Once this was noted the wound was closed in usual fashion using a 3-0 Vicryl suture for the subcutaneous layer and a 4-0 subcuticular Vicryl suture for the skin edges. Dermabond was used for dressing.The patient left the operation room in satisfactory condition and tolerated the procedure well. All needle and sponge counts were correct at the end of the procedure. Milvia Canela Pac assisted due to lack of resident availability and was necessary for positioning, draping, retraction, wound closure deep layers, subcutaneous tissue, and skin closure and was necessary for assisting with the case. I attest to the content of the Intraoperative Record and any orders documented therein. Any exceptions are noted below.
--- NOTE | 2022-08-12 15:28 | Anesthesiology Progress Note ---
Date of Service August 12, 2022 Anesthesia Post Procedure Vital Signs Vital Signs: Temp Pulse Pulse Resp BP BP Pulse Ox 08/12/22 14:55 63 20 111/42 L 95 08/12/22 14:45 66 16 89/37 L 95 08/12/22 15:05 59 L 19 96/39 L 96 08/12/22 14:35 64 13 107/39 L 96 08/12/22 14:25 36.9 C 73 20 104/42 L 98/72 L 95 08/12/22 08:02 36.7 C 76 22 167/95 H 150/75 H 954 H O2 Del Method O2 Flow Rate 08/12/22 14:55 Oxymask 2 08/12/22 14:45 Oxymask 2 08/12/22 15:05 Room Air 08/12/22 14:35 Oxymask 5 08/12/22 14:25 Oxymask 5 08/12/22 08:02 Room Air Transfer of Care Handoff Completed per policy Notes Mental Status: alert / awake / arousable Patient Amnestic to Procedure: Yes Nausea / Vomiting: adequately controlled Pain: adequately controlled Airway Patency, RR, SpO2: stable & adequate BP & HR: stable & adequate Hydration State: stable & adequate Anesthetic Complications: no major complications apparent
[2022-08-12] MEDS ORDERED: LACTATED RINGER'S 1,000 ML IV SCH (16:08)
[2022-08-12] MEDS ORDERED: oxyCODONE/ACETAMINOPHEN 5mg/325mg TAB PO PRN (16:08)
[2022-08-12] MEDS: LANTUS PER UNIT CHARGE SQ SCH (19:40)
[2022-08-12] MEDS: ceFAZolin 2000MG 2,000 MG/15 ML SYR IV SCH (19:40)
[2022-08-12] MEDS ORDERED: ROSUVASTATIN CALCIUM 10 MG TAB PO SCH (21:00)
[2022-08-13] MEDS: ceFAZolin 2000MG 2,000 MG/15 ML SYR IV SCH (05:23)
[2022-08-13] MEDS ORDERED: DEXTROSE 50% 50 ML SYRINGE IV PRN (08:15)
[2022-08-13] MEDS ORDERED: CARBOHYDRATES FOR HYPOGLYCEMIA PO PRN (08:15)
[2022-08-13] MEDS ORDERED: GLUCAGON FOR INJ 1 MG VIAL IM PRN (08:15)
[2022-08-13] MEDS ORDERED: GLUCOSE 40% GEL 15 GM TUBE PO PRN (08:15)
[2022-08-13] MEDS ORDERED: GLUCOSE 10 TAB/TUBE PO PRN (08:15)
[2022-08-13] MEDS: LANTUS PER UNIT CHARGE SQ SCH (08:43)
[2022-08-13] MEDS ORDERED: ASPIRIN 81 MG ECTAB PO SCH (09:00)
[2022-08-13] MEDS ORDERED: hydroCHLOROthiazide 25 MG TAB PO SCH (09:00)
[2022-08-13] MEDS ORDERED: VALSARTAN 80 MG TAB PO SCH (09:00)
[2022-08-13] MEDS ORDERED: VALSARTAN/HCTZ 320/12.5 MG TAB PO SCH (09:00)
[2022-08-13] MEDS ORDERED: CLOPIDOGREL BISULFATE 75 MG TAB PO SCH (09:00)
--- NOTE | 2022-08-13 15:55 | Surgery Progress Note ---
Date of Service August 13, 2022 Assessment & Plan (1) Stenosis of left internal carotid artery: Plan: Attempted TCAR Will d/c today and schedule for a left CEA in the future Admission and Anticipated Discharge Date Admission Date: August 12, 2022 Subjective Patient without complaint. No neuro deficits. Physical Exam Constitutional: WD/WN, vitals as above Neck: trachea midline Skin: + incision (small amount of edema and ecchymosis) Neurologic: CN's II-XI intact bilaterally and moves all extremities Psychiatric: Orientation: alert and oriented x 3 Results & Data Vital Signs (Past 12 Hours) Vital Signs Temp Pulse Pulse Resp BP Pulse Ox O2 Del Method 08/13/22 11:47 52 L 08/13/22 11:12 36.5 C 63 18 123/68 97 Room Air 08/13/22 07:28 36.5 C 66 18 134/70 94 Room Air
--- NOTE | 2022-08-13 15:56 | Discharge Summary ---
Date of Service August 13, 2022 Admission HPI Per Admitting Provider Mr. May is an elderly male who presents to Dr. Rocha's vascular surgery clinic today for a follow-up visit after undergoing a CTA of the neck to evaluate his carotid stenosis. Patient previously underwent a right-sided transcarotid artery revascularization in fall 2021 due to symptomatic carotid disease on that side. Imaging the at that time had also noted a severe stenosis of his left ICA, however, his right side was considered more urgent for treatment. He recently returned for follow-up, and imaging indicated a possible severe stenosis versus occlusion of his left ICA by ultrasound. We sent him for a CTA to better evaluate. He denies any symptoms of cerebrovascular insufficiency including amaurosis, extremity weakness numbness or tingling, difficulty speaking or swallowing, facial droop, sudden onset confusion, other complaints. Imaging: CTA performed at [facility] on 05/29/2022 demonstrates string sign of the left ICA, and a widely patent right ICA stent. Admission Exam Per Admitting Provider Constitutional: In general patient is an overweight but healthy-appearing well- nourished well-developed elderly male no distress. He is alert and oriented without any focal deficits. His right neck demonstrates faint bruit. His supraclavicular incision on the right is well-healed. His heart is regular, his lungs are clear. Abd exam is benign. His upper extremity pulses are +3. Lower extremity exam was deferred today. Principal Diagnosis Left internal carotid artery stenosis Discharge Exam Constitutional: In general patient is an overweight but healthy-appearing well-nourished well-developed elderly male no distress. He is alert and oriented without any focal deficits. His right neck demonstrates faint bruit. His supraclavicular incision on the right is well-healed. His heart is regular, his lungs are clear. Abd exam is benign. His upper extremity pulses are +3. Lower extremity exam was deferred today. Constitutional WD/WN, vitals as above Neck trachea midline Skin + incision (small amount of edema and ecchymosis) Neurologic CN's II-XI intact bilaterally and moves all extremities Psychiatric Orientation: alert and oriented x 3 Discharge Data Allergies Allergy/AdvReac Type Severity Reaction Status Date / Time No Known Allergies Allergy Verified 08/12/22 08:00 Procedures Performed Operation Date: 08/12/22 09:30 Actual Procedures p Attempted Left Transcarotid Artery Revascularization, ultrasound of right common femoral vein(Left) - Tin Rocha MD Ordered Studies 08/12/22 07:07 EV angio carotid cerv LT Routine 08/12/22 08:15 US EV guide vascular access Routine Hospital Course (1) Stenosis of left internal carotid artery: Attempted TCAR Will d/c today and schedule for a left CEA in the future Total Time Total Time Spent Total Time Spent (In Minutes): 0 Discharge Plan Discharge Items Patient Disposition: Home - Self-Care Reason For Visit: Left Internal Carotid Artery Stenosis Discharge Diagnosis: Left internal carotid artery stenosis Activity: Per Instructions section Non-emergency contact: Surgeon Call non-emergency contact if: your temperature is above 101.5, your wound has increased redness, your wound has increased drainage and your wound pain has increased Follow-up/Referrals: Magen Montero PA-C [Primary Care Provider] - Diet: Carb Consistent or DM2 and Heart Healthy Addtl Attending Provider Instructions: ACTIVITY RECOMMENDATIONS: Continue plavix, aspirin and statin. May shower starting tomorrow May resume normal activity as tolerated SPECIAL CARE INSTRUCTIONS: Call your doctor if: * Temperature above 101 degrees * Pain not relieved by pain medicine ordered * There is increased drainage or redness from any incision * You have any unanswered questions or concerns. Call [phone] to schedule a follow up appointment if one not already scheduled. Pending Studies at Discharge: No Stand-Alone Forms: My [facility] BlockScore, Smoking Cessation Medications and DC Order Prescriptions: Continued aspirin 81 mg tablet,delayed release (DR/EC) 81 mg PO QAM rosuvastatin [Crestor] 10 mg tablet 10 mg PO HS insulin glargine [Basaglar KwikPen U-100 Insulin] 100 unit/mL (3 mL) insulin pen 20 unit subcut BID valsartan-hydrochlorothiazide 320-12.5 mg Tablet 1 tab PO QAM clopidogrel [Plavix] 75 mg Tablet 75 mg PO QAM Discharge Orders: Discharge Order (Routine); Ordered 08/13/22 Ordered By: Tin Rocha Admission Data Admit Date/Time: 08/12/22 08:01 Attending Provider: Tin Rocha Admit Provider: Tin Rocha Primary Care Provider: Magen Montero
== END 2022-08-13 16:24 | disposition home or self-care (01) | DRG 38 ==
LOC: ASU 07:06 → 2S 08:01
PROC: EV.TCAR (2022-08-12 09:30)

== ENCOUNTER 2022-10-13 05:15 | Inpatient (IN) ==
--- NOTE | 2022-10-12 10:41 | Anesthesiology Consultation ---
Date of Service October 12, 2022 Assessment & Plan (1) Encounter for pre-operative examination: Chart Review Chart Review: Acceptable Risk for Surgery and Patient NOT seen in Pre Admission Testing - Check BSG AM DOS -COVID screening: Per PAT nursing assessment on 10/12/22. No known COVID-19 positive contacts or current COVID-19 related symptoms. Travel screen negative. At surgeon discretion if preop Covid testing being done. Left TCAR (attempted) 08/12/22= Done under GA with Grade 1 view with MAC #3. ETT #7.5. DVL x 1 atraumatic -S/P Right TCAR (12/19/21): Grade view 1, MAC#3, ETT 8.0 at [facility] History Surgery Operation Date: 10/13/22 07:30 Proposed Procedures p Left Carotid Endarterectomy - Tin Rocha MD Height/Weight Height: 5 ft 11 in Weight: 151.953 kg Allergies Allergy/AdvReac Type Severity Reaction Status Date / Time No Known Allergies Allergy Verified 08/12/22 08:00 Medications Home Medications Medication Instructions Recorded Confirmed Last Taken aspirin 81 mg tablet,delayed 81 mg PO QAM 11/13/21 10/12/22 08/12/22 07:35 release insulin glargine 100 unit/mL (3 20 unit subcut BID 11/13/21 10/12/22 08/11/22 19:30 mL) subcutaneous pen (Basaglar 20 KwikPen U-100 Insulin) rosuvastatin 10 mg tablet (Crestor) 10 mg PO HS 11/13/21 10/12/22 08/11/22 19:30 valsartan 320 1 tab PO QAM 12/15/21 10/12/22 08/11/22 19:30 mg-hydrochlorothiazide 12.5 mg tablet clopidogrel 75 mg tablet (Plavix) 75 mg PO QAM 12/19/21 10/12/22 08/12/22 07:35 Past Medical History Medical History Carotid stenosis - Right TCAR 12/2021 at [facility] - Neck CTA 05/2022- Progression of severe (greater than 95%) stenosis of the distal left common carotid and proximal left internal carotid arteries since CT of December 09, 2021. Short segment occlusion of the proximal left internal carotid artery with distal reconstitution could appear similar although is considered less likely. - Left TCAR attempted 08/2022 CKD (chronic kidney disease) History of gout History of kidney stones Hyperlipemia Hypertension controlled, stable per pt Mild concentric left ventricular hypertrophy (LVH) Morbid obesity Type 2 diabetes mellitus IDDM Past Family History Family History Other No family history of adverse response to anesthesia Past Surgical History Surgical History (Updated 10/12/22 @ 10:40 by Abigail Ngo PA-C) H/O vascular surgery - Right transcarotid artery revascularization ([facility] 2021) - Left TCAR (attempted) 08/12/22= Done under GA with Grade 1 view with MAC #3. ETT #7.5. DVL x 1 atraumatic History of appendectomy History of cystoscopy History of plastic surgery Severe laceration to lower lip from power saw History of reverse total replacement of right shoulder joint 08/11/19: Grade 1 view Glidescope#4 ETT 8 + PNB. History of surgery on extremity LLE, + francisco javier Social History Smoking Status: Former smoker tobacco type: cigarettes Smoking cigarettes per day: quit ~ 40 yrs ago Do You Dip or Chew Tobacco: No Hx Alcohol Use: No Hx Substance Use: No substance use type: does not use Lab Results Anesthesia Preop Results Results Anesthesia Widget: WBC 9.31 K/ul (4.8-10.8) 10/06/22 Hgb 13.4 g/dl (14.0-18.0) L 10/06/22 Hct 39.3 % (42.0-52.0) L 10/06/22 Plt 233 K/uL (130-400) 10/06/22 Na 136 mmol/L (136-145) 10/06/22 K 3.9 mmol/L (3.5-5.1) 10/06/22 Cl 103 mmol/L (98-107) 10/06/22 CO2 25 mmol/L (21-32) 10/06/22 BUN 27 mg/dl (6-23) H 10/06/22 Creat 1.52 mg/dl (0.6-1.4) H 10/06/22 Glucose Level 129 mg/dl (70-99(Fasting)) H 10/06/22 PTT 29.1 Seconds (21.0-31.0) 10/06/22 Blood Type A Positive 10/06/22 Antibody Screen NEGATIVE 10/06/22 Testing Laboratory Results Elevated creatinine chronic and stable since 2019 Electrocardiogram Date: 12/16/21 NSR, rate 65 bpm Chest X-Ray Date: 12/16/21 Cardiomediastinal and hilar silhouettes are within normal limits. No pneu mothorax, pleural effusion, airspace consolidation or overt pulmonary edema. Degenerative changes of the spine and left shoulder. Right shoulder arthroplasty. IMPRESSION: No acute process. Echocardiogram Date: 12/02/21 EF 60-65% Normal LV systolic function Grade I diastolic dysfunction Mild cLVH No significant valvular pathology Other Testing Neck CTA Date: 05/29/22 Progression of severe (greater than 95%) stenosis of the distal left common carotid and proximal left internal carotid arteries since CT of December 09, 2021, as detailed above. Short segment occlusion of the proximal left internal carotid artery with distal reconstitution could appear similar although is considered less likely. Evaluation on this exam is difficult given the extent of calcified plaque. Interval right carotid revascularization with significant improvement in stenosis. Approximate 30% stenosis of the proximal right internal carotid artery, as described above. This has improved since CT of December 09, 2021.
[2022-10-13] MEDS ORDERED: LACTATED RINGER'S 1,000 ML IV SCH (06:00)
[2022-10-13] MEDS ORDERED: PROPOFOL IV EMULSION 10 MG/ML 20 ML VIAL IV ONE (06:48)
[2022-10-13] MEDS ORDERED: fentaNYL citrate PF 100 MCG/2 ML VIAL ONE (06:48)
[2022-10-13] MEDS ORDERED: LIDOCAINE 2% 2 ML VIAL/AMP(20MG/ML) INFIL ONE (06:48)
[2022-10-13] MEDS ORDERED: MIDAZOLAM HCL 1 MG/ML 2ML VIAL ONE (06:48)
[2022-10-13] MEDS ORDERED: ROCURONIUM BROMIDE 10 MG/ML 5 ML VIAL IV ONE ×4 (06:48→08:13)
[2022-10-13] MEDS ORDERED: DEXAMETHASONE SOD INJ 4 MG/ML VIAL ONE (06:48)
[2022-10-13] MEDS ORDERED: ONDANSETRON INJ 2 MG/ML 2 ML VIAL ONE (06:48)
[2022-10-13] MEDS ORDERED: SUGAMMADEX SODIUM 200 MG/2 ML VIAL IV ONE (06:48)
[2022-10-13] MEDS ORDERED: ceFAZolin 330 MG/ML 1 GM VIAL ONE (07:06)
[2022-10-13] MEDS ORDERED: LIDOCAINE 1% LOCAL 20 ML VIAL ONE (07:06)
[2022-10-13] MEDS ORDERED: BUPIVACAINE/EPINEPHRINE 0.5% MPF 1:200,000 30 ML VIAL ONE (07:06)
[2022-10-13] MEDS ORDERED: HEPARIN (PORCINE) 1000 UNIT/ML 10 ML (CATH LAB USE ONLY) ONE (07:06)
[2022-10-13] MEDS ORDERED: GELATIN SPONGE SZ 100 ONE (07:07)
[2022-10-13] MEDS ORDERED: THROMBIN FOR SOLN 20000 UNIT KIT ONE (07:07)
--- NOTE | 2022-10-13 07:10 | History & Physical Report ---
Date of Service October 13, 2022 Assessment & Plan (1) Stenosis of left internal carotid artery: Plan: Patient admitted for a left cea. I have discussed the risks options and benefits of the procedure with the patient. The patient understands the risks options and benefits and agrees to the procedure. History of Present Illness Chief Complaint: Left internal carotid artery stenosis Primary Care Provider: Magen Montero Mr. May is an elderly male who presents to Dr. Rocha's vascular surgery clinic today for a follow-up visit after undergoing a CTA of the neck to evaluate his carotid stenosis. Patient previously underwent a right-sided transcarotid artery revascularization in fall 2021 due to symptomatic carotid disease on that side. Imaging the at that time had also noted a severe stenosis of his left ICA, however, his right side was considered more urgent for treatment. He recently returned for follow-up, and imaging indicated a possible severe stenosis versus occlusion of his left ICA by ultrasound. We sent him for a CTA to better evaluate. CTA confirmed a string sign of the left carotid. A TCAR was attempted but the internal carotid could not be cannulated. He denies any symptoms of cerebrovascular insufficiency including amaurosis, extremity weakness numbness or tingling, difficulty speaking or swallowing, facial droop, sudden onset confusion, other complaints. Allergies Allergy/AdvReac Type Severity Reaction Status Date / Time No Known Allergies Allergy Verified 10/13/22 05:43 Home Medications Medication Instructions Recorded Confirmed Type aspirin 81 mg tablet,delayed 81 mg PO QAM 11/13/21 10/13/22 History release insulin glargine 100 unit/mL (3 20 unit subcut BID 11/13/21 10/13/22 History mL) subcutaneous pen (Basaglar KwikPen U-100 Insulin) rosuvastatin 10 mg tablet (Crestor) 10 mg PO HS 11/13/21 10/13/22 History valsartan 320 1 tab PO QAM 12/15/21 10/13/22 History mg-hydrochlorothiazide 12.5 mg tablet (Diovan HCT) clopidogrel 75 mg tablet (Plavix) 75 mg PO QAM 12/19/21 10/13/22 History Past Med/Surg History Medical History Carotid stenosis - Right TCAR 12/2021 at [facility] - Neck CTA 05/2022- Progression of severe (greater than 95%) stenosis of the distal left common carotid and proximal left internal carotid arteries since CT of December 09, 2021. Short segment occlusion of the proximal left internal carotid artery with distal reconstitution could appear similar although is considered less likely. - Left TCAR attempted 08/2022 CKD (chronic kidney disease) History of gout History of kidney stones Hyperlipemia Hypertension controlled, stable per pt Mild concentric left ventricular hypertrophy (LVH) Morbid obesity Type 2 diabetes mellitus IDDM Surgical History H/O vascular surgery - Right transcarotid artery revascularization ([facility] 2021) - Left TCAR (attempted) 08/12/22= Done under GA with Grade 1 view with MAC #3. ETT #7.5. DVL x 1 atraumatic History of appendectomy History of cystoscopy History of plastic surgery Severe laceration to lower lip from power saw History of reverse total replacement of right shoulder joint 08/11/19: Grade 1 view Glidescope#4 ETT 8 + PNB. History of surgery on extremity LLE, + francisco javier Family History Other No family history of adverse response to anesthesia Social History Smoking Status: Former smoker Cigarettes Per Day: quit ~ 40 yrs ago; Second Hand Exposure: No; Do You Dip or Chew Tobacco: No; Tobacco Cessation Education Requested by Patient: No Hx Alcohol Use: No Hx Substance Use: No Preferred Language: Belarusian Communication Ability: Effective Communication Ability Comment: [facility] Service Order Clerk Required: No Beliefs That Will Affect Care: None Current Living Situation: Alone Other Information That Helps Us Care for You: No Feels Safe at Home: Yes Safety Concerns: Feels Safe At This Time Assistive Devices: Denture - Upper, Glasses and Hearing Aid - Bilateral Review of Systems All systems reviewed & are unremarkable except as noted in HPI & below Physical Exam Physical Exam: Constitutional: In general patient i s an overweight bu t healthy-appearin g well-nourished w ell-developed elde rly male no distre ss. He is alert a nd oriented withou t any focal defici ts. His right nec k demonstrates toney nt bruit. His sup raclavicular incis ion on the right i s well-healed. Hi s heart is regular , his lungs are cl ear. Abd exam is benign. His upper extremity pulses are +3. Lower ext remity exam was de ferred today. Results & Data Vital Signs (Past 12 Hours) Vital Signs Temp Pulse Resp BP Pulse Ox O2 Del Method 10/13/22 05:47 36.7 C 78 20 169/80 H 96 Room Air
[2022-10-13] MEDS ORDERED: ATROPINE SULFATE 0.1 MG/ML 10ML SYR IV PRN (07:17)
[2022-10-13] MEDS ORDERED: ePHEDrine sulfate 50 MG/ML AMP IV PRN (07:17)
--- NOTE | 2022-10-13 07:17 | History & Physical Bridge Note ---
Date of Service October 13, 2022 History & Physical Bridge Note I have examined the patient, reviewed the History & Physical and in the interval since the performance of the History & Physical I have noted the following changes of clinical significance: no changes noted
[2022-10-13] MEDS ORDERED: DexMEDEtomidine HCL IV 100 MCG/ML VIAL IV ONE (07:22)
[2022-10-13] MEDS ORDERED: LARYING-O-JET KIT (LTA) ONE (08:13)
[2022-10-13] MEDS ORDERED: HEPARIN SOD (PORCINE) 1000 UNIT/ML ONE (08:13)
[2022-10-13] MEDS ORDERED: NITROGLYCERIN/D5W 100 MCG/ML BTL ONE (08:14)
[2022-10-13] MEDS ORDERED: PROTAMINE SULFATE 10 MG/ML 5 ML VIAL IV ONE (10:07)
--- NOTE | 2022-10-13 10:27 | Post Operative Brief Note ---
Immediate Post Op Note v1 Date of Surgery October 13, 2022 Pre & Post Diagnosis Operation Date: 10/13/22 07:30 Pre-Op Diagnosis: Left Internal Carotid Artery Stenosis Post-Op Diagnosis: Left Internal Carotid Artery Stenosis I identified the patient and participated in the time-out.: Yes Procedure Operation Date: 10/13/22 07:30 Actual Procedures p Left Carotid Endarterectomy with bovine patch(Left) - Tin Rocha MD Surgeon Tin Rocha MD Optical Sales Associate MD Maryanne AlvaradoMinarchick,PAC Estimated Blood Loss 150 Findings Consistent with Post-Op Diagnosis Anesthesia Type General Complications none Disposition Accompanied Patient To Recovery: No Disposition: Recovery Room
--- NOTE | 2022-10-13 10:35 | Operative Report ---
Post Operative Report Pre & Post Diagnosis Operation Date: 10/13/22 07:30 Pre-Op Diagnosis: Left Internal Carotid Artery Stenosis Post-Op Diagnosis: Left Internal Carotid Artery Stenosis I identified the patient and participated in the time-out.: Yes Procedure Operation Date: 10/13/22 07:30 Actual Procedures p Left Carotid Endarterectomy(Left) - Tin Rocha MD Surgeon Tin Rocha MD Creative Services Producer MD Maryanne AlvaradoMinarchick,PAC Estimated Blood Loss 150 Findings See Below Very calcified bulb and ICA, palpable pulse in distal ICA following patch repair Fluids see anesthsia Specimens left carotid plaque Drains none Anesthesia Type General Complications none Disposition Accompanied Patient To Recovery: Yes Disposition: Recovery Room Indications High grade left carotid stenosis Description of Procedure The patient was taken to the operating room and placed in supine position. After general anesthesia was accomplished the left-side of the neck was prepped and draped in a sterile manner. A longitudinal neck incision was then made coursing along the medial border of the sternocleidomastoid muscle. The incision was taken down through the platysmal layer. The facial vein was identified, ligated, and divided. The common carotid artery was then seen. It was dissected free down to the omohyoid muscle. The dissection was carried upward until the external carotid artery and superior thyroid artery was seen. The superior thyroid artery was slung with a 2-0 silk suture. The external carotid was slung with a red rubber vessel loop. Next the dissection was carried up along the internal carotid artery. This was carried upward to beyond the area of narrowing. The hypoglossal nerve was seen and preserved. The occipital artery and vein were ligated to allow for mobilization of the hypoglossal nerve. The patient was heparinized. After adequate heparinization was accomplished, the internal, external, and common carotid arteries were clamped. A longitudinal arteriotomy was started on the common carotid artery and extended upward along the internal carotid artery to a point beyond the area of narrowing. There was calcified plaque of the internal carotid artery origin causing approximately 90-95% narrowing. There was good back bleeding seen from the internal carotid artery therefore a shunt was not used. The endarterectomy was then started in the appropriate plane on the common carotid artery. This was carried upward and the external carotid was everted and endarterectomized. The endarterectomy was then carried up along the internal carotid artery till a nice feathering breakoff point was accomplished beyond the end of the plaque. The endarterectomy was then carried down further on the common carotid artery. At end of the arteriotomy, the plaque was then transected. Under loop magnific ation, all loose debris and flaps werer removed. There is no distal flap seen at the end of the endarterectomy site however [address] at the ICA to prevent any flap. The arteriotomy then closed using an bovine carotid patch and a running 5-0 prolene suture. This was done in the usual vascular fashion. Prior to completing the closure Backbleeding and forward bleeding was allowed to occur. The flow surface was irrigated with heparinized saline. The final few sutures were then placed and securely tied. Clamps were then removed off the external and common carotid arteries. The clamp was then removed the internal carotid artery. Good distal flow was seen. Adequate hemostasis was seen of the patch. The wound was inspected and adequate hemostasis was obtained. The wound was irrigated with antibiotic solution. It was then closed with a running 3-0 Vicryl suture for the platysmal layer and a 4-0 subcuticular Vicryl suture for the skin edges. Dermabond was used for dressing. The patient left the operation room in satisfactory condition and tolerated the procedure well. All needle and sponge counts were correct at the end of the procedure. Dr. Rocha was present and scrubbed for the entire procedure. I attest to the content of the Intraoperative Record and any orders documented therein. Any exceptions are noted below.
[2022-10-13] MEDS: HYDROmorphone INJ 2 MG/ML SYR/VIAL IV PRN ×2 (11:06→11:16)
--- NOTE | 2022-10-13 11:10 | Anesthesiology Progress Note ---
Date of Service October 13, 2022 Anesthesia Post Procedure Vital Signs Vital Signs: Temp Pulse Resp BP Pulse Ox O2 Del Method 10/13/22 05:47 36.7 C 78 20 169/80 H 96 Room Air Transfer of Care Handoff Completed per policy Notes Mental Status: alert / awake / arousable Patient Amnestic to Procedure: Yes Nausea / Vomiting: adequately controlled Pain: adequately controlled Airway Patency, RR, SpO2: stable & adequate BP & HR: stable & adequate Hydration State: stable & adequate Anesthetic Complications: no major complications apparent and Pt Satisfied with anesthetic care
[2022-10-13] MEDS ORDERED: ONDANSETRON INJ 2 MG/ML 2 ML VIAL IV PRN (13:28)
[2022-10-13] MEDS ORDERED: PHARMACY GLYCEMIC MGMT CONSULT PRN (13:28)
[2022-10-13] MEDS ORDERED: oxyCODONE/ACETAMINOPHEN 5mg/325mg TAB PO PRN (13:28)
--- NOTE | 2022-10-13 13:38 | Critical Care Consultation ---
Date of Consultation October 13, 2022 Assessment & Plan (1) Status post carotid endarterectomy: Pt is a 77 yo male with PMH of CKD, HLD, HTN, DM, and right TCAR in 2021 admitted for a left carotid endarterectomy. Left carotid artery stenosis s/p endarterectomy - procedure went well per chart review and pt account - pt hemodynamically stable and currently free of pain; he does have a current oxygen requirement of 4L oxymask (no oxygen requirement at baseline)- wean as able - will continue to monitor vitals while hospitalized - continue DAPT - post op care per vascular surgery HTN - continue pt's home meds (HCTZ 12.5mg daily, valsartan 320 mg daily) HLD - continue home statin CKD - most recent labs from 10/06 show Cr at baseline DM - continue home regimen of insulin glargine 20 units BID - ICU hyperglycemic protocols FEN: LR at 125 mL/hr, heart healthy/carb consistent Code: full DVT ppx: per vascular surgery- pt currently on DAPT Dispo: per vascular surgery (2) Morbid obesity: (3) Type 2 diabetes mellitus: (4) Hypertension: (5) Stenosis of left internal carotid artery: Supervising Physician Co-Signing Physician Notes Patient seen and examined. EMR reviewed. Discussed with family practice resident and agree with assessment plan as noted. Status post carotid endarterectomy. Doing well postoperatively. Continue to monitor blood pressure. Glycemic control per protocol. Activity per vascular surgery. History of Present Illness Reason for Consultation: s/p left carotid endarterectomy Requesting Physician: Tin Rocha MD Attending Physician: Tin Rocha MD History of Present Illness Pt is a 77 yo male with PMH of CKD, HLD, HTN, DM, and right TCAR in 2021 admitted for a left carotid endarterectomy. Pt was evaluated for left sided carotid stenosis due to findings on imaging at the time of his right TCAR in 2021. An ultrasound showed findings consistent with severe stenosis and a CTA confirmed this. A left TCAR was attempted but the vessel could not be cannulated. The decision was made to move forward with a left endarterectomy. Per pt, surgery went well. He is currently without pain at the surgical site. He denies chest pain, SOB, and leg pains. Allergies Allergy/AdvReac Type Severity Reaction Status Date / Time No Known Allergies Allergy Verified 10/13/22 05:43 Home Medications Medication Instructions Recorded Confirmed Type aspirin 81 mg tablet,delayed 81 mg PO QAM 11/13/21 10/13/22 History release insulin glargine 100 unit/mL (3 20 unit subcut BID 11/13/21 10/13/22 History mL) subcutaneous pen (Basaglar KwikPen U-100 Insulin) rosuvastatin 10 mg tablet (Crestor) 10 mg PO HS 11/13/21 10/13/22 History valsartan 320 1 tab PO QAM 12/15/21 10/13/22 History mg-hydrochlorothiazide 12.5 mg tablet (Diovan HCT) clopidogrel 75 mg tablet (Plavix) 75 mg PO QAM 12/19/21 10/13/22 History Patient History Medical History Carotid stenosis - Right TCAR 12/2021 at [facility] - Neck CTA 05/2022- Progression of severe (greater than 95%) stenosis of the d istal left common carotid and proximal left internal carotid arteries since CT of December 09, 2021. Short segment occlusion of the proximal left internal carotid artery with distal reconstitution could appear similar although is considered less likely. - Left TCAR attempted 08/2022 CKD (chronic kidney disease) History of gout History of kidney stones Hyperlipemia Hypertension controlled, stable per pt Mild concentric left ventricular hypertrophy (LVH) Morbid obesity Type 2 diabetes mellitus IDDM Surgical History (Updated 10/13/22 @ 13:37 by Amelia Parkinson, ) H/O vascular surgery - Right transcarotid artery revascularization ([facility] 2021) - Left TCAR (attempted) 08/12/22= Done under GA with Grade 1 view with MAC #3. ETT #7.5. DVL x 1 atraumatic History of appendectomy History of cystoscopy History of plastic surgery Severe laceration to lower lip from power saw History of reverse total replacement of right shoulder joint 08/11/19: Grade 1 view Glidescope#4 ETT 8 + PNB. History of surgery on extremity LLE, + francisco javier Family History Other No family history of adverse response to anesthesia Social History Smoking Status: Former smoker Cigarettes Per Day: quit ~ 40 yrs ago; Second Hand Exposure: No; Do You Dip or Chew Tobacco: No; Tobacco Cessation Education Requested by Patient: No Hx Alcohol Use: No Hx Substance Use: No Preferred Language: Liberian Communication Ability: Effective Communication Ability Comment: [facility] Signal Worker Helper Required: No Beliefs That Will Affect Care: None Current Living Situation: Alone Other Information That Helps Us Care for You: No Feels Safe at Home: Yes Safety Concerns: Feels Safe At This Time Assistive Devices: Denture - Upper, Glasses and Hearing Aid - Bilateral Review of Systems Review of Systems: As per HPI Physical Exam Physical Exam: Constitutional: well appearing, no acute distress HEENT: normocephalic, no conjunctival injection CV: regular rhythm, regular rate, no murmur, minimal LE edema Respiratory: Clear to auscultation bilaterally. No rhonchi, wheezes, or crackles. No increased work of breathing MSK: no gross deformities noted Skin: warm, dry, stasis dermatitis noted on bilateral LE, surgical site w/o purulence or surrounding erythema noted on left side of neck. Neuro: alert, oriented, no FND noted Results & Data Results & Data Vital Signs (Past 12 Hours) Vital Signs Temp Pulse Pulse Resp BP BP Pulse Ox 10/13/22 11:35 36.4 C L 60 12 118/57 L 125/45 L 97 10/13/22 11:25 60 16 110/58 L 117/42 L 97 10/13/22 11:15 63 12 117/57 L 119/42 L 96 10/13/22 11:05 63 12 126/66 122/43 L 96 10/13/22 10:53 36 C L 63 12 128/64 96 10/13/22 05:47 36.7 C 78 20 169/80 H 96 O2 Del Method O2 Flow Rate 10/13/22 11:35 Oxymask 3 10/13/22 11:25 Oxymask 3 10/13/22 11:15 Oxymask 4 10/13/22 11:05 Oxymask 6 10/13/22 10:53 Oxymask 8 10/13/22 05:47 Room Air Resident Activity Tracking Resident Involvement: Resident Care Provided Care Provided: Adult Hospital Medicine (ICU)
[2022-10-13] MEDS: LACTATED RINGER'S 1,000 ML IV SCH ×3 (13:40→23:17)
[2022-10-13] MEDS ORDERED: ceFAZolin 2000MG 2,000 MG/15 ML SYR IV ONE (14:00)
[2022-10-13] MEDS ORDERED: CARBOHYDRATES FOR HYPOGLYCEMIA PO PRN (14:30)
[2022-10-13] MEDS ORDERED: GLUCOSE 10 TAB/TUBE PO PRN (14:30)
[2022-10-13] MEDS ORDERED: GLUCOSE 40% GEL 15 GM TUBE PO PRN (14:30)
[2022-10-13] MEDS ORDERED: GLUCAGON FOR INJ 1 MG VIAL IM PRN (14:30)
[2022-10-13] MEDS ORDERED: DEXTROSE 50% 50 ML SYRINGE IV PRN (14:30)
--- NOTE | 2022-10-13 14:39 | Pharmacy Report ---
Pharmacy Glycemic Short Note 2 - Date of Service October 13, 2022 - Glycemic Short BSG Results (Last 24 hours): 10/13/22 10/13/22 05:39 10:56 POC Glucose 105 H 146 H OUTPATIENT ANTIDIABETIC REGIMEN: * Lantus 20 units BID * A1c: 6% 12/16/21 (repeat ordered for tomorrow am) ASSESSMENT: * S/P CEA * Last lantus dose was 8/7 in the evening * BSGs 105 and 146 mg/dL today * Patient is ordered a diet * Will start with a regimen that is more equitable with basal and bolus insulin. PLAN FOR INPATIENT GLYCEMIC CONTROL: * Hold outpatient oral diabetes medications * Basal insulin * Lantus 10 units SQ BID * Bolus insulin * NovoLog per scale ACHS or Q6hrs while NPO * Goal Range: Low 110 mg/dL - High 150 mg/dL * Correction Factor: 35 mg/dL/unit * Nutritional / Prandial insulin per carb ratio of 1 unit per 12 grams CHO consumed
--- NOTE | 2022-10-13 15:37 | Billing Data ---
Date of Service October 13, 2022 Coding Level of Care Code 38973 SUB INP/OBS CARE
[2022-10-13] MEDS: INSULIN ASPART PER UNIT CHARGE SC SCH ×2 (16:59→20:26)
[2022-10-13] MEDS ORDERED: ROSUVASTATIN CALCIUM 10 MG TAB PO SCH (21:00)
[2022-10-13] MEDS ORDERED: LANTUS PER UNIT CHARGE SC SCH (21:00)
[2022-10-14] MEDS: LACTATED RINGER'S 1,000 ML IV SCH ×2 (06:40→12:09)
--- NOTE | 2022-10-14 07:47 | Critical Care Progress Note ---
Date of Service October 14, 2022 Assessment & Plan (1) Status post carotid endarterectomy: Plan: Impression: 77 yo male with PMH of CKD, HLD, HTN, DM, and right TCAR in 2021 admitted for a left carotid endarterectomy. Recommendations: Left carotid artery stenosis s/p endarterectomy Management per vascular surgery. Tolerating diet. Pain control adequate. HTN - continue pt's home meds (HCTZ 12.5mg daily, valsartan 320 mg daily) HLD - continue home statin CKD No new lab DM - continue home regimen of insulin glargine 20 units BID - ICU hyperglycemic protocols FEN: Hep-Lock Code: full DVT ppx: per vascular surgery- pt currently on DAPT Dispo: per vascular surgery Critical care issues have resolved. Critical care will sign off. Disposition per vascular surgery. Feel free to contact us with questions or concerns. (2) Morbid obesity: (3) Type 2 diabetes mellitus: (4) Hypertension: (5) Stenosis of left internal carotid artery: Admission and Anticipated Discharge Date Admission Date: October 13, 2022 Subjective Patient seen and examined. EMR reviewed. Discussed with bedside critical care nurse and on multidisciplinary rounds. Patient is doing well overnight. He had some slight swelling which is gone down this morning. He is not having any phonation issues. No difficulty with swallowing. His pain is well-controlled. Blood pressures been stable. He is up to the chair and eating breakfast this morning. No neurological complaints. Review of Systems Review of Systems: All systems reviewed & are unremarkable except as noted in Subjective Physical Exam Constitutional: WD/WN, vitals as above Neck: trachea midline, no thyromegaly Incision clean dry and intact. Slight swelling just below the ear. Trachea is midline Respiratory: normal respiratory effort, lungs clear to auscultation Cardiovascular: RRR, no murmur, no edema Gastrointestinal (Abdomen): normal bowel sounds, soft, nontender, no hepatosplenomegaly Musculoskeletal: Extremities: extremities normal to inspection Skin: no rashes, warm and dry Neurologic: Nonfocal exam Lymphatic: no cervical lymphadenopathy Results & Data Results & Data Vital Signs (Past 12 Hours) Vital Signs Temp Pulse Resp BP Pulse Ox O2 Del Method O2 Flow Rate 10/14/22 07:37 Room Air 10/14/22 06:00 70 15 94 10/14/22 05:00 70 18 145/81 H 98 10/14/22 04:36 23 159/78 H 98 10/14/22 04:31 88 21 93 10/14/22 04:15 69 16 149/68 H 98 10/14/22 04:00 69 14 162/79 H 98 10/14/22 03:45 68 15 144/72 H 98 10/14/22 03:30 69 17 156/74 H 98 10/14/22 03:15 66 16 147/66 H 98 10/14/22 03:00 68 17 98 10/14/22 02:45 67 20 132/68 98 10/14/22 02:30 71 17 152/76 H 98 10/14/22 02:15 69 18 147/68 H 98 10/14/22 03:41 36.5 C 10/14/22 00:00 36.7 C 10/13/22 20:00 36.8 C 10/14/22 02:00 69 19 152/66 H 97 10/14/22 01:45 67 18 147/69 H 98 10/14/22 01:31 66 14 128/70 99 10/14/22 01:00 71 15 144/71 H 98 10/14/22 00:30 68 15 115/57 L 97 10/14/22 00:15 75 16 128/57 L 95 10/14/22 00:13 84 28 H 141/64 H 95 10/14/22 00:11 80 25 H 141/73 H 97 10/14/22 00:00 129 H 25 H 93 10/13/22 23:45 65 13 133/68 97 10/13/22 23:30 66 14 126/62 97 10/13/22 23:15 67 14 126/63 98 10/14/22 01:23 67 10/13/22 23:00 66 15 122/68 97 10/13/22 22:45 76 17 137/68 98 10/13/22 22:30 69 16 134/63 99 10/13/22 22:15 68 17 127/61 98 10/13/22 22:00 69 13 126/64 97 10/13/22 21:45 70 15 128/58 L 98 10/13/22 21:30 72 16 130/61 98 10/13/22 21:15 70 18 118/61 98 10/13/22 21:00 73 15 129/64 98 10/13/22 20:45 67 11 L 107/55 L 98 10/13/22 20:32 77 19 152/69 H 99 10/13/22 20:30 75 17 99 10/13/22 20:15 71 16 123/65 98 10/13/22 20:00 73 13 123/66 98 10/13/22 19:45 80 17 135/73 99 10/13/22 20:02 Nasal Cannula 3 Critical Care Results & Data Vital Signs (Past 12 Hours) Vital Signs Temp Pulse Resp BP Pulse Ox O2 Del Method O2 Flow Rate 10/14/22 07:37 Room Air 10/14/22 06:00 70 15 94 10/14/22 05:00 70 18 145/81 H 98 10/14/22 04:36 23 159/78 H 98 10/14/22 04:31 88 21 93 10/14/22 04:15 69 16 149/68 H 98 10/14/22 04:00 69 14 162/79 H 98 10/14/22 03:45 68 15 144/72 H 98 10/14/22 03:30 69 17 156/74 H 98 10/14/22 03:15 66 16 147/66 H 98 10/14/22 03:00 68 17 98 10/14/22 02:45 67 20 132/68 98 10/14/22 02:30 71 17 152/76 H 98 10/14/22 02:15 69 18 147/68 H 98 10/14/22 03:41 36.5 C 10/14/22 00:00 36.7 C 10/13/22 20:00 36.8 C 10/14/22 02:00 69 19 152/66 H 97 10/14/22 01:45 67 18 147/69 H 98 10/14/22 01:31 66 14 128/70 99 10/14/22 01:00 71 15 144/71 H 98 10/14/22 00:30 68 15 115/57 L 97 10/14/22 00:15 75 16 128/57 L 95 10/14/22 00:13 84 28 H 141/64 H 95 10/14/22 00:11 80 25 H 141/73 H 97 10/14/22 00:00 129 H 25 H 93 10/13/22 23:45 65 13 133/68 97 10/13/22 23:30 66 14 126/62 97 10/13/22 23:15 67 14 126/63 98 10/14/22 01:23 67 10/13/22 23:00 66 15 122/68 97 10/13/22 22:45 76 17 137/68 98 10/13/22 22:30 69 16 134/63 99 10/13/22 22:15 68 17 127/61 98 10/13/22 22:00 69 13 126/64 97 10/13/22 21:45 70 15 128/58 L 98 10/13/22 21:30 72 16 130/61 98 10/13/22 21:15 70 18 118/61 98 10/13/22 21:00 73 15 129/64 98 10/13/22 20:45 67 11 L 107/55 L 98 10/13/22 20:32 77 19 152/69 H 99 10/13/22 20:30 75 17 99 10/13/22 20:15 71 16 123/65 98 10/13/22 20:00 73 13 123/66 98 10/13/22 20:02 Nasal Cannula 3 Lab & Micro Results (Past 24 Hours) No Data to Display No Data to Display No Data to Display I & O Totals 24 Hours 10/13/22 10/14/22 10/15/22 06:59 06:59 06:59 Intake Total 3122.5 / 3122.5 Output Total 1775 / 1775 Balance 1347.5 / 1347.5 Cumulative 09/29/22 08:32 thru 10/14/22 06:01 Intake Total 3122.5 Output Total 1775 Balance 1347.5 RT Ventilator Mngmt (Last Documented) Ventilator Ordered Settings Respiratory Rate 15 10/14/22 06:00 Ventilator - PT Measurements Respiratory Rate 15 Coding Level of Care Code 93897 SUB INP/OBS CARE 2/35MIN Diagnoses Status post carotid endarterectomy Z98.890 Morbid obesity E66.01 Type 2 diabetes mellitus E11.9 Hypertension I10 Stenosis of left internal carotid artery I65.22
[2022-10-14] MEDS: INSULIN ASPART PER UNIT CHARGE SC SCH ×2 (07:53→12:13)
[2022-10-14 08:15] LABS: Estimated Average Glucose 128 mg/dl; Hemoglobin A1C 6.1 % (4.5-5.6)
[2022-10-14] MEDS ORDERED: ASPIRIN 81 MG ECTAB PO SCH (09:00)
[2022-10-14] MEDS ORDERED: VALSARTAN 80 MG TAB PO SCH (09:00)
[2022-10-14] MEDS ORDERED: VALSARTAN/HCTZ 320/12.5 MG TAB PO SCH (09:00)
[2022-10-14] MEDS ORDERED: hydroCHLOROthiazide 25 MG TAB PO SCH (09:00)
[2022-10-14] MEDS ORDERED: CLOPIDOGREL BISULFATE 75 MG TAB PO SCH (09:00)
[2022-10-14] MEDS ORDERED: LANTUS PER UNIT CHARGE SC SCH (09:00)
--- NOTE | 2022-10-14 13:30 | Surgery Progress Note ---
Date of Service October 14, 2022 Assessment & Plan (1) Status post carotid endarterectomy: Plan: Patient doing well. Will d/c today. Admission and Anticipated Discharge Date Admission Date: October 13, 2022 Subjective Patient without complaints. Denies any swallowing or speech difficulty. Denies any focal deficits. Physical Exam Constitutional: WD/WN, vitals as above Neck: trachea midline Respiratory: normal respiratory effort; no respiratory distress Cardiovascular: Rate/Rhythm: regular rate and regular rhythm Gastrointestinal (Abdomen): Inspection/Auscultation: abdomen normal to inspection Percussion/Palpation: abdomen soft Skin: + incision (dry and clean) Neurologic: CN's II-XI intact bilaterally and moves all extremities Psychiatric: Orientation: alert and oriented x 3 Results & Data Vital Signs (Past 12 Hours) Vital Signs Temp Pulse Resp BP Pulse Ox O2 Del Method 10/14/22 08:00 36.8 C 10/14/22 11:30 74 34 H 122/69 96 Room Air 10/14/22 11:35 36.6 C 10/14/22 07:37 Room Air 10/14/22 06:00 70 15 94 10/14/22 05:00 70 18 145/81 H 98 10/14/22 04:36 23 159/78 H 98 10/14/22 04:31 88 21 93 10/14/22 04:15 69 16 149/68 H 98 10/14/22 04:00 69 14 162/79 H 98 10/14/22 03:45 68 15 144/72 H 98 10/14/22 03:30 69 17 156/74 H 98 10/14/22 03:15 66 16 147/66 H 98 10/14/22 03:00 68 17 98 10/14/22 02:45 67 20 132/68 98 10/14/22 02:30 71 17 152/76 H 98 10/14/22 02:15 69 18 147/68 H 98 10/14/22 03:41 36.5 C 10/14/22 02:00 69 19 152/66 H 97 10/14/22 01:45 67 18 147/69 H 98 10/14/22 01:31 66 14 128/70 99
--- NOTE | 2022-10-14 13:34 | Discharge Summary ---
Date of Service October 14, 2022 Admission HPI Per Admitting Provider Mr. May is an elderly male who presents to Dr. Rocha's vascular surgery clinic today for a follow-up visit after undergoing a CTA of the neck to evaluate his carotid stenosis. Patient previously underwent a right-sided transcarotid artery revascularization in fall 2021 due to symptomatic carotid disease on that side. Imaging the at that time had also noted a severe stenosis of his left ICA, however, his right side was considered more urgent for treatment. He recently returned for follow-up, and imaging indicated a possible severe stenosis versus occlusion of his left ICA by ultrasound. We sent him for a CTA to better evaluate. CTA confirmed a string sign of the left carotid. A TCAR was attempted but the internal carotid could not be cannulated. He denies any symptoms of cerebrovascular insufficiency including amaurosis, extremity weakness numbness or tingling, difficulty speaking or swallowing, facial droop, sudden onset confusion, other complaints. Admission Exam Per Admitting Provider Constitutional: In general patient i s an overweight bu t healthy-appearin g well-nourished w ell-developed elde rly male no distre ss. He is alert a nd oriented withou t any focal defici ts. His right nec k demonstrates toney nt bruit. His sup raclavicular incis ion on the right i s well-healed. Hi s heart is regular , his lungs are cl ear. Abd exam is benign. His upper extremity pulses are +3. Lower ext remity exam was de ferred today. Principal Diagnosis left internal carotid artery stenosis, left carotid endarterectomy Discharge Exam Constitutional WD/WN, vitals as above Neck trachea midline Respiratory normal respiratory effort; no respiratory distress Cardiovascular Rate/Rhythm: regular rate and regular rhythm Gastrointestinal (Abdomen) Inspection/Auscultation: abdomen normal to inspection Percussion/Palpation: abdomen soft Skin + incision (dry and clean) Neurologic CN's II-XI intact bilaterally and moves all extremities Psychiatric Orientation: alert and oriented x 3 Discharge Data Allergies Allergy/AdvReac Type Severity Reaction Status Date / Time No Known Allergies Allergy Verified 10/13/22 05:43 Consultations 10/13/22 13:28 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 Will d/c today. Total Time Total Time Spent Total Time Spent (In Minutes): 0 Discharge Plan Discharge Items Patient Disposition: Home - Self-Care Reason For Visit: Left Internal Carotid Artery Stenosis Discharge Diagnosis: Left internal carotid artery stenosis, left carotid endarterectomy Activity: Per Instructions section Non-emergency contact: Specialist Call non-emergency contact if: your temperature is above 101.5, your wound has increased redness, your wound has increased drainage and your wound pain has increased Follow-up/Referrals: Magen Montero PA-C [Primary Care Provider] - Diet: Carb Consistent or DM2 and Heart Healthy Addtl Attending Provider Instructions: SPECIAL CARE INSTRUCTIONS: Medications: * Continue to take Aspirin as directed. Incision Care: * You may shower, but do not rub incision. You may let the warm soapy water run over it. Be sure to dry the incision well after bathing. * Do not shave directly over the incision until it is healed. * DO NOT IMMERSE THE INCISION IN A TUB/POOL/etc. UNTIL HEALED. Restrictions: * Do not drive for at least one week or if you are still taking any narcotic pain medication. * Do not lift anything heavier than a gallon of milk for one week after going home. Possible Complications: * Numbness - It is normal to have some numbness around the incision. Numbness can extend beyond the incision to areas of the neck, ear and face. The numbness is due to bruising of nerves during the surgery and will gradually improve over a period of months. * Hoarseness/Difficulty Speaking and Swallowing - The bruising of nerves in the neck can also cause a hoarse voice, difficulty speaking or swallowing. This may improve over time, HOWEVER, if it continues for more than a few days please contact our office ([phone]). * Excessive Swelling - There will be some swelling immediately after surgery which usually resolves within one week. If you notice that the swelling is getting worse, notify your surgeon ([phone]). * Drainage/Bleeding - If there is any drainage or bleeding, it should be a very small amount (less than a teaspoon per day). If you have excessive bleeding or drainage from the incision, call your surgeon ([phone]) right away. ACTIVATION OF EMERGENCY MEDICAL SYSTEM: Call 911, immediately, if you experience any of the following: Warning Signs and Symptoms of Stroke: * Sudden numbness or weakness of the face, arm or leg, especially on one side of the body * Sudden confusion, trouble speaking or understanding * Sudden trouble seeing in one or both eyes * Sudden trouble walking, dizziness, loss of balance or coordination * Sudden severe headache with no cause Do not delay calling 911 if you experience any warning signs or symptoms of a stroke. Delay in seeking medical attention may affect what treatments can be given to you. Risk Factors for Stroke: You can reduce your chances of stroke by working with your medical provider to adopt a healthy lifestyle. Some specific ways to lower your chance of stroke are: * If you are a smoker, now is the time to stop smoking cigarettes * If you are diabetic, improve the control of your blood sugars * Avoid excessive amounts of alcohol * Control high blood pressure * Lose weight if you are overweight * Be sure to lead an active lifestyle * Eat a healthy diet low in salt, cholesterol and fat You should know about other risk factors for stroke that you are unable to control. These include: * Age 55 years or older * Male gender * Certain racial groups: , or / * Family History of Stroke, Mini stroke or Heart Attack * Sickle Cell Disease You will be receiving a call from the Vascular Surgery Nurse after you are discharged. FOLLOW UP VISIT: It is important for you to keep your follow up appointments with your medical provider. Keep any scheduled doctor appointments. Call [phone] to schedule a follow up appointment if one not already scheduled. Pending Studies at Discharge: No Stand-Alone Forms: My [facility], Smoking Cessation Medications and DC Order Prescriptions: Continued aspirin 81 mg tablet,delayed release (DR/EC) 81 mg PO QAM rosuvastatin [Crestor] 10 mg tablet 10 mg PO HS insulin glargine [Basaglar KwikPen U-100 Insulin] 100 unit/mL (3 mL) insulin pen 20 unit subcut BID valsartan-hydrochlorothiazide [Diovan HCT] 320-12.5 mg Tablet 1 tab PO QAM clopidogrel [Plavix] 75 mg Tablet 75 mg PO QAM Discharge Orders: Discharge Order (Routine); Ordered 10/14/22 Ordered By: Tin Desai/Other Patient Handouts: High Blood Sugar (Hyperglycemia), Managing Type 2 Diabetes Admission Data Admit Date/Time: 10/13/22 10:15 Attending Provider: Tin Rocha Admit Provider: Tin Rocha Primary Care Provider: Magen Montero Other Providers: Shaq Palomo ; Kelechi Oliva ; Evangelista Costello ; Farooq Au ; Juvencio Matthew ; Marquise Presley ; Madhavi De Anda ; Keaton Valera ; Nora Krueger ; Criselda Williamson ; Jorge A Ashraf
== END 2022-10-14 15:16 | disposition home or self-care (01) | DRG 38 ==
LOC: ASU 05:15 → 1E 10:15